=== PATIENT | male | born 1940 | race Caucasian/White ===

== ENCOUNTER 2018-02-23 13:34 | Emergency (ER) | payer MEDICARE ==
[2016-08-03 10:13] VITALS: BMI 19.3
[~2018-02-23 13:34] MED LIST: BAYER CHEWABLE81 MG PO; BETAPACE 80 MG80 MG PO; BROVANA15 MCG/2 M INH; COLACE100 MG PO; ELIQUIS2.5 MG PO; HYDROCODONE-APA1 TAB PO; IPRAT-ALBUT 0.5-3 ML UPD; LEVOFLOXAC250 MG/50 IV; NICODERM C1 PATCH .3 TRANSDERM; NORCO 10/325 TA1 TA1 PO; XANAX0.25 MG PO; XANAX0.5 MG PO; ZOFRAN4 MG PO; ZOSYN 3.3753.375 G1 IV
[2018-02-23 15:28] LABS: BASOPHILS 0.4 % (0-2); EOSINOPHILS 2.4 % (0-7); HEMATOCRIT 43.6 % (42.0-54.0); HEMOGLOBIN 14.5 g/dL (13.5-17.5); IMMATURE GRANULOCYTES 0.4 % (0-5); LYMPHOCYTES 21.5 % (15-50); MCH 30.7 pg (26.0-34.0); MCHC 33.3 g/dL (31.0-37.0); MCV 92.4 fL (80.0-100.0); MEAN PLATELET VOLUME 10.3 fL (7.4-10.4); MONOCYTES 6.7 % (2-11); NEUTROPHILS 68.6 % (40-80); RBC 4.72 10x6/uL (4.20-6.10); RDW 13.8 % (11.5-14.5)
[2018-02-23 15:31] LABS: PLATELET COUNT 179 10x3/uL (130-400)
[2018-02-23 15:43] LABS: ALBUMIN 3.5 g/dL (3.4-5.0); ALKALINE PHOSPHATASE 60 U/L (46-116); ALT (SGPT) 13 U/L (10-68); BILIRUBIN - TOTAL 0.23 mg/dL (0.2-1.3); CALC OSMOLALITY 280 mosm/kg (275-300); CALCIUM 9.3 mg/dL (8.5-10.1); CARBON DIOXIDE 33.3 mmol/L (21.0-32.0); CHLORIDE - SERUM 101 mmol/L (98-107); CREATININE - SERUM 0.7 mg/dL (0.6-1.3); GLUCOSE 78 mg/dL (74-106); POTASSIUM - SERUM 4.2 mmol/L (3.5-5.1); PROTEIN - SERUM 7.3 g/dL (6.4-8.2); SODIUM 142 mmol/L (136-145); UREA NITROGEN 10 mg/dL (7-18); eGFR NON AFRICAN AMERICAN > 90 mL/min (90-120)
[2018-02-23 16:12] LABS: APPEARANCE CLEAR (CLEAR); BILIRUBIN NEGATIVE (NEGATIVE); COLOR YELLOW (YELLOW); GLUCOSE NEGATIVE (NEGATIVE); KETONE NEGATIVE (NEGATIVE); NITRITE NEGATIVE (NEGATIVE); PROTEIN NEGATIVE (NEGATIVE); SPECIFIC GRAVITY 1.015 (1.005-1.020); UROBILINOGEN NORMAL (NORMAL)
[2018-02-23 16:15] LABS: BACTERIA FEW /hpf (NONE SEEN); EPITHELIAL CELLS 0-5 /hpf (0-5); WHITE CELLS - URINE 0-5 /hpf (0-5)
== END 2018-02-23 18:18 | disposition home or self-care (01) ==
LOC: D.ER 13:34
PROVIDERS: Physician Assistant
DX: R05 Cough (principal); R53.83 Other fatigue

== ENCOUNTER 2018-07-08 15:15 | Inpatient (IN) | payer MEDICARE ==
[~2018-07-08] VITALS: Ht 175.3 cm; Wt 59.8 kg
[2018-07-08 15:00] VITALS: BP 135/75
[2018-07-08 15:41] LABS: BASOPHILS 0.3 % (0-2); EOSINOPHILS 2.7 % (0-7); HEMATOCRIT 44.7 % (42.0-54.0); HEMOGLOBIN 15.2 g/dL (13.5-17.5); IMMATURE GRANULOCYTES 0.2 % (0-5); LYMPHOCYTES 16.3 % (15-50); MCH 31.3 pg (26.0-34.0); MCV 92.2 fL (80.0-100.0); MEAN PLATELET VOLUME 10.5 fL (7.4-10.4); MONOCYTES 5.6 % (2-11); NEUTROPHILS 74.9 % (40-80); PLATELET COUNT 164 10x3/uL (130-400); RBC 4.85 10x6/uL (4.20-6.10); RDW 13.8 % (11.5-14.5)
[2018-07-08 15:54] LABS: ALBUMIN 3.8 g/dL (3.4-5.0); ALKALINE PHOSPHATASE 65 U/L (46-116); ALT (SGPT) 16 U/L (10-68); BILIRUBIN - TOTAL 0.34 mg/dL (0.2-1.3); CALC OSMOLALITY 275 mosm/kg (275-300); CALCIUM 9.3 mg/dL (8.5-10.1); CARBON DIOXIDE 31.6 mmol/L (21.0-32.0); CHLORIDE - SERUM 101 mmol/L (98-107); CREATININE - SERUM 0.7 mg/dL (0.6-1.3); GLUCOSE 97 mg/dL (74-106); POTASSIUM - SERUM 3.9 mmol/L (3.5-5.1); PROTEIN - SERUM 7.8 g/dL (6.4-8.2); SODIUM 137 mmol/L (136-145); UREA NITROGEN 18 mg/dL (7-18); eGFR NON AFRICAN AMERICAN > 90 mL/min (90-120)
[2018-07-08 17:00] VITALS: BP 120/61
[2018-07-08 17:15] VITALS: BP 129/62
[2018-07-08 17:30] VITALS: BP 128/68
[2018-07-08 18:02] VITALS: BP 130/61
[2018-07-08] MEDS ORDERED: VENTOLIN HFA18 GM INH (18:42)
[2018-07-09 04:20] VITALS: BP 130/61; BMI 22.2
[2018-07-09 05:16] VITALS: BP 108/60
[2018-07-09 08:23] VITALS: BP 136/68
[2018-07-09 11:43] VITALS: BP 115/62
[2018-07-09 15:21] VITALS: BP 128/67
[2018-07-09 20:00] VITALS: BP 122/67
[2018-07-10 00:56] VITALS: BP 127/68
[2018-07-10 04:00] VITALS: BP 115/65
[2018-07-10 04:59] LABS: APPEARANCE CLEAR (CLEAR); BILIRUBIN NEGATIVE (NEGATIVE); COLOR YELLOW (YELLOW); GLUCOSE 50 mg/dL (NEGATIVE); KETONE NEGATIVE (NEGATIVE); NITRITE NEGATIVE (NEGATIVE); PROTEIN NEGATIVE (NEGATIVE); SPECIFIC GRAVITY 1.015 (1.005-1.020); UROBILINOGEN NORMAL (NORMAL)
[2018-07-10 08:32] VITALS: BP 125/63
[2018-07-10 10:55] VITALS: BP 108/72
[2018-07-10 12:24] VITALS: Ht 175.3 cm; Wt 59.8 kg
[2018-07-10 13:04] LABS: BASOPHILS 0 % (0-2); EOSINOPHILS 0.1 % (0-7); HEMATOCRIT 46.2 % (42.0-54.0); HEMOGLOBIN 15.7 g/dL (13.5-17.5); IMMATURE GRANULOCYTES 0.2 % (0-5); LYMPHOCYTES 5.1 % (15-50); MCH 31.2 pg (26.0-34.0); MCV 91.8 fL (80.0-100.0); MEAN PLATELET VOLUME 11.5 fL (7.4-10.4); MONOCYTES 3.1 % (2-11); NEUTROPHILS 91.5 % (40-80); RBC 5.03 10x6/uL (4.20-6.10)
[2018-07-10 13:07] LABS: PLATELET COUNT 222 10x3/uL (130-400); WBC 14.2 10x3/uL (4.8-10.8)
[2018-07-10 13:42] LABS: ALBUMIN 3.7 g/dL (3.4-5.0); ALKALINE PHOSPHATASE 74 U/L (46-116); ALT (SGPT) 13 U/L (10-68); BILIRUBIN - TOTAL 0.34 mg/dL (0.2-1.3); CALCIUM 9.2 mg/dL (8.5-10.1); CARBON DIOXIDE 28.9 mmol/L (21.0-32.0); CHLORIDE - SERUM 102 mmol/L (98-107); CREATININE - SERUM 0.8 mg/dL (0.6-1.3); POTASSIUM - SERUM 3.6 mmol/L (3.5-5.1); PROTEIN - SERUM 7.4 g/dL (6.4-8.2); SODIUM 141 mmol/L (136-145); eGFR NON AFRICAN AMERICAN > 90 mL/min (90-120)
[2018-07-10 13:43] LABS: CALC OSMOLALITY 289 mosm/kg (275-300); GLUCOSE 169 mg/dL (74-106); UREA NITROGEN 26 mg/dL (7-18)
[2018-07-10 15:20] VITALS: BP 114/60
[2018-07-10 22:06] VITALS: BP 106/62
[2018-07-11 00:47] VITALS: BP 138/66
[2018-07-11 05:23] VITALS: BP 113/63
[2018-07-11 06:07] LABS: BASOPHILS 0 % (0-2); EOSINOPHILS 0 % (0-7); HEMATOCRIT 42.3 % (42.0-54.0); IMMATURE GRANULOCYTES 0.4 % (0-5); LYMPHOCYTES 5.9 % (15-50); MCH 30.4 pg (26.0-34.0); MCHC 33.1 g/dL (31.0-37.0); MCV 91.8 fL (80.0-100.0); MEAN PLATELET VOLUME 11.8 fL (7.4-10.4); MONOCYTES 3.9 % (2-11); NEUTROPHILS 89.8 % (40-80); PLATELET COUNT 187 10x3/uL (130-400); RBC 4.61 10x6/uL (4.20-6.10); RDW 14.1 % (11.5-14.5); WBC 14.3 10x3/uL (4.8-10.8)
[2018-07-11 06:26] LABS: ALKALINE PHOSPHATASE 63 U/L (46-116); ALT (SGPT) 12 U/L (10-68); BILIRUBIN - TOTAL 0.34 mg/dL (0.2-1.3); CALC OSMOLALITY 285 mosm/kg (275-300); CALCIUM 8.9 mg/dL (8.5-10.1); CARBON DIOXIDE 31.2 mmol/L (21.0-32.0); CHLORIDE - SERUM 104 mmol/L (98-107); CREATININE - SERUM 0.7 mg/dL (0.6-1.3); GLUCOSE 155 mg/dL (74-106); MAGNESIUM - SERUM 2.1 mg/dL (1.8-2.4); POTASSIUM - SERUM 3.3 mmol/L (3.5-5.1); PROTEIN - SERUM 6.5 g/dL (6.4-8.2); SODIUM 140 mmol/L (136-145); UREA NITROGEN 24 mg/dL (7-18); eGFR NON AFRICAN AMERICAN > 90 mL/min (90-120)
[2018-07-11 08:30] VITALS: BP 153/82
[2018-07-11 11:30] VITALS: BP 122/64
[2018-07-11 15:00] VITALS: BP 112/62
[2018-07-11 22:50] VITALS: BP 119/73
[2018-07-12 01:58] VITALS: BP 113/64
[2018-07-12 05:22] LABS: BASOPHILS 0 % (0-2); EOSINOPHILS 0.1 % (0-7); HEMATOCRIT 44.1 % (42.0-54.0); HEMOGLOBIN 14.7 g/dL (13.5-17.5); IMMATURE GRANULOCYTES 0.3 % (0-5); LYMPHOCYTES 10.9 % (15-50); MCH 30.9 pg (26.0-34.0); MCHC 33.3 g/dL (31.0-37.0); MCV 92.8 fL (80.0-100.0); MEAN PLATELET VOLUME 10.8 fL (7.4-10.4); MONOCYTES 6.3 % (2-11); NEUTROPHILS 82.4 % (40-80); PLATELET COUNT 152 10x3/uL (130-400); RBC 4.75 10x6/uL (4.20-6.10); RDW 14.1 % (11.5-14.5); WBC 14.5 10x3/uL (4.8-10.8)
[2018-07-12 05:45] LABS: ALBUMIN 2.9 g/dL (3.4-5.0); ALKALINE PHOSPHATASE 56 U/L (46-116); ALT (SGPT) 13 U/L (10-68); BILIRUBIN - TOTAL 0.55 mg/dL (0.2-1.3); CALC OSMOLALITY 279 mosm/kg (275-300); CALCIUM 8.6 mg/dL (8.5-10.1); CARBON DIOXIDE 34.1 mmol/L (21.0-32.0); CHLORIDE - SERUM 102 mmol/L (98-107); CREATININE - SERUM 0.8 mg/dL (0.6-1.3); GLUCOSE 108 mg/dL (74-106); MAGNESIUM - SERUM 1.9 mg/dL (1.8-2.4); POTASSIUM - SERUM 3.4 mmol/L (3.5-5.1); PROTEIN - SERUM 6.4 g/dL (6.4-8.2); SODIUM 138 mmol/L (136-145); UREA NITROGEN 20 mg/dL (7-18); eGFR NON AFRICAN AMERICAN > 90 mL/min (90-120)
[2018-07-12 06:15] VITALS: BP 123/73
[2018-07-12 07:56] VITALS: BP 111/60
[2018-07-12] MEDS ORDERED: PREDNISONE10 MG PO (10:14)
[2018-07-12] MEDS ORDERED: MUCINEX600 MG PO (10:14)
[2018-07-12 10:44] VITALS: BP 108/57
[2018-07-12 14:17] VITALS: BP 110/63
== END 2018-07-12 17:13 | disposition home or self-care (01) | DRG 190 ==
LOC: D.ER 15:15 → D.EDHOLD 19:05 → D.M2 19:05
PROVIDERS: Emergency Medicine; Family Medicine; Internal Medicine Nephrology
DX: J44.1 Chronic obstructive pulmonary disease with (acute) exacerbation (principal); E43 Unspecified severe protein-calorie malnutrition; F17.213 Nicotine dependence, cigarettes, with withdrawal; J96.11 Chronic respiratory failure with hypoxia; Z68.22 Body mass index [BMI] 22.0-22.9, adult; I48.91 Unspecified atrial fibrillation; F41.9 Anxiety disorder, unspecified; F32.9 Major depressive disorder, single episode, unspecified; Z86.73 Personal history of transient ischemic attack (TIA), and cerebral infarction without residual deficits; Z79.01 Long term (current) use of anticoagulants

== ENCOUNTER 2018-08-18 16:59 | Inpatient (IN) | payer MEDICARE ==
[~2018-08-18] VITALS: Ht 170.2 cm; Wt 54.4 kg
--- NOTE | ~2018-08-18 | MORECARE ---
CASE MANAGEMENT DISCHARGE SUMMARY PATIENT: ZIA REDDY UNIT: [id number] ADM DATE: 08/18/18 AGE: 77 : 39 SEX: M ROOM/BED: D.2202 AUTHOR: DEMARDOC PHYSICIAN: REFERRING PHYSICIAN: ACE RENTERIA MD DATE OF SERVICE: 08/23/18 Discharge Plan Patient Name: ZIA REDDY Facility: [facility]:[place] : 1940 Planned Disposition: Home Anticipated Discharge Date: Discharge Date: Expected LOS: Initial Reviewer: [email or web address] Initial Review Date: 08/18/2018 Generated: 08/23/18 3:16 pm Comments DCP- Discharge Planning Updated by [email or web address]: Carolina Becerra on 08/23/18 1:[address] Patient will be discharging to inpatient rehab department today. IMM served and explained. I called and spoke with patient's son, Jeremie DCP- Discharge Planning Updated by [email or web address]: Carolina Becerra on 08/23/18 12:[address] spoke with patient's today and updated on plan of care. told him that we were going to try to get him to inpatient rehab. she did state that he had home o2 and a walker and he was independent for his age. cm will continue to follow and assist with dc planning DCP- Discharge Planning Updated by [id number]: Carolina Becerra on 08/21/18 1:[address] Patient Name: ZIA REDDY Admission Status: ER Accout number: [id number] Admission Date: 08-18-2018 : 1940 Admission Diagnosis: Attending: ACE RENTERIA Current LOS: 3 Anticipated DC Date: Planned Disposition: Home Primary Insurance: MEDICARE A & B Discharge Planning Comments: CM met with patient and attempted to speak with him about discharge planning. It is very hard to communicate with him. He stated that he lives with his and son, but does not like the way that they live. He mentioned his daughter Alpa Reddy (who lives with [place]) mentioned that he could come live with her, but he is unable to find her number for me to call her. I am unsure if his home is safe. He stated that he take his walker into the shower and falls everytime he showers. He has home O2 (I think) walker and cane. CM will continue to follow and assist with DC planning. I may recommend Inpatient rehab vs Skilled to build up strength . Will continue to follow Document Control Assistant: Carolina Becerra DCPIA - Discharge Planning Initial Assessment Updated by [email or web address]: Carolina Becerra on 08/21/18 2:33 pm * Is the patient Alert and Oriented? Yes * How many steps to enter\exit or inside your home? * PCP * [facility] * Preadmission Environment Home with Family * ADLs Partial Dependent * Partial ADLs (Assistance needed) Bathing * Equipment Cane Oxygen Rolling Walker * List name and contact numbers for known caregivers / representatives who currently or will assist patient after discharge: and son jeremie reddy (son ) [phone] * Verbal permission to speak to the caregivers and representatives has been obtained from the patient. Yes * Additional services required to return to the preadmission environment? Yes * Has this patient been hospitalized within the prior 30 days at any hospital? No Coverage Notice Reviewer: [id number] - Carolina Becerra Notice Issued Date-Time: 08/23/2018 14:00 Notice Type: IM Discharge Notice Notice Delivered To: Patient Relationship to Patient: White Sourer Name: Delivery Method: HAND - Hand Delivered Hortensia Days: Prior Verbal Notification: Recipient Understood Notice: Yes Recipient Signature: Yes Med Rec Note Co-signed by Attending: Coverage Notice Comment: Last DP export: 08/23/18 12:51 Patient Name: ZIA REDDY Page 52625 at 1416 All edits/amendments must be made on the electronic document DICTATION DATE: 08/23/181414 CRANE MAN: MAHI 08/23/181414 RPT#: [id number] DC DATE: STATUS: ADM IN [facility] [address] [place] [address] END OF REPORT
--- NOTE | ~2018-08-18 | MORECARE ---
CASE MANAGEMENT DISCHARGE SUMMARY PATIENT: ZIA REDDY UNIT: [id number] ADM DATE: 08/18/18 AGE: 77 : 39 SEX: M ROOM/BED: D.2202 AUTHOR: QAMAR BENZ PHYSICIAN: REFERRING PHYSICIAN: ACE RENTERIA MD DATE OF SERVICE: 08/23/18 Discharge Plan Patient Name: ZIA REDDY Facility: [facility]:[place] : 1940 Planned Disposition: Home Anticipated Discharge Date: Discharge Date: Expected LOS: Initial Reviewer: [email or web address] Initial Review Date: 08/18/2018 Generated: 08/23/18 2:51 pm Comments DCP- Discharge Planning Updated by [id number]: Carolina Becerra on 08/23/18 12:[address] spoke with patient's today and updated on plan of care. told him that we were going to try to get him to inpatient rehab. she did state that he had home o2 and a walker and he was independent for his age. cm will continue to follow and assist with dc planning DCP- Discharge Planning Updated by [email or web address]: Carolina Becerra on 08/21/18 1:[address] Patient Name: ZIA REDDY Admission Status: ER Accout number: [id number] Admission Date: 08-18-2018 : 1940 Admission Diagnosis: Attending: ACE RENTERIA Current LOS: 3 Anticipated DC Date: Planned Disposition: Home Primary Insurance: MEDICARE A & B Discharge Planning Comments: CM met with patient and attempted to speak with him about discharge planning. It is very hard to communicate with him. He stated that he lives with his and son, but does not like the way that they live. He mentioned his daughter Alpa Reddy (who lives with [place]) mentioned that he could come live with her, but he is unable to find her number for me to call her. I am unsure if his home is safe. He stated that he take his walker into the shower and falls everytime he showers. He has home O2 (I think) walker and cane. CM will continue to follow and assist with DC planning. I may recommend Inpatient rehab vs Skilled to build up strength . Will continue to follow Purchasing Agent: Carolina Becerra DCPIA - Discharge Planning Initial Assessment Updated by [email or web address]: Carolina Becerra on 08/21/18 2:33 pm * Is the patient Alert and Oriented? Yes * How many steps to enter\exit or inside your home? * PCP * [facility] * Preadmission Environment Home with Family * ADLs Partial Dependent * Partial ADLs (Assistance needed) Bathing * Equipment Cane Oxygen Rolling Walker * List name and contact numbers for known caregivers / representatives who currently or will assist patient after discharge: and son ny reddy (son ) [phone] * Verbal permission to speak to the caregivers and representatives has been obtained from the patient. Yes * Additional services required to return to the preadmission environment? Yes * Has this patient been hospitalized within the prior 30 days at any hospital? No Last DP export: 08/21/18 1:38 Patient Name: ZIA REDDY Page 18724 at 1351 All edits/amendments must be made on the electronic document DICTATION DATE: 08/23/18 1350 CV RN: MAHI 08/23/18 1350 RPT#: [id number] PR DATE: STATUS: ADM IN [facility] [address] [place] [address] END OF REPORT
--- NOTE | ~2018-08-18 | MORECARE ---
CASE MANAGEMENT DISCHARGE SUMMARY PATIENT: ZIA REDDY UNIT: [id number] ADM DATE: 08/18/18 AGE: 77 : 39 SEX: M ROOM/BED: D.2202 AUTHOR: DEMARDOC PHYSICIAN: REFERRING PHYSICIAN: ACE RENTERIA MD DATE OF SERVICE: 08/24/18 Discharge Plan Patient Name: ZIA REDDY Facility: [facility]:[place] : 1940 Planned Disposition: Home Anticipated Discharge Date: Discharge Date: 08/23/2018 Expected LOS: 0 Initial Reviewer: [email or web address] Initial Review Date: 08/18/2018 Generated: 08/24/18 10:16 am Comments DCP- Discharge Planning Updated by [id number]: Carolina Becerra on 08/23/18 1:[address] Patient will be discharging to inpatient rehab department today. IMM served and explained. I called and spoke with patient's sonJeremie DCP- Discharge Planning Updated by [id number]: Carolina Becerra on 08/23/18 12:[address] spoke with patient's today and updated on plan of care. told him that we were going to try to get him to inpatient rehab. she did state that he had home o2 and a walker and he was independent for his age. cm will continue to follow and assist with dc planning DCP- Discharge Planning Updated by [email or web address]: Carolina Becerra on 08/21/18 1:[address] Patient Name: ZIA REDDY Admission Status: ER Accout number: [id number] Admission Date: 08-18-2018 : 1940 Admission Diagnosis: Attending: ACE RENTERIA Current LOS: 3 Anticipated DC Date: Planned Disposition: Home Primary Insurance: MEDICARE A & B Discharge Planning Comments: CM met with patient and attempted to speak with him about discharge planning. It is very hard to communicate with him. He stated that he lives with his and son, but does not like the way that they live. He mentioned his daughter Alpa Reddy (who lives with [place]) mentioned that he could come live with her, but he is unable to find her number for me to call her. I am unsure if his home is safe. He stated that he take his walker into the shower and falls everytime he showers. He has home O2 (I think) walker and cane. CM will continue to follow and assist with DC planning. I may recommend Inpatient rehab vs Skilled to build up strength . Will continue to follow [employer]: Carolina Becerra DCPIA - Discharge Planning Initial Assessment Updated by [email or web address]: Carolina Becerra on 08/21/18 2:33 pm * Is the patient Alert and Oriented? Yes * How many steps to enter\exit or inside your home? * PCP * [facility] * Preadmission Environment Home with Family * ADLs Partial Dependent * Partial ADLs (Assistance needed) Bathing * Equipment Cane Oxygen Rolling Walker * List name and contact numbers for known caregivers / representatives who currently or will assist patient after discharge: and son jereime reddy (son ) [phone] * Verbal permission to speak to the caregivers and representatives has been obtained from the patient. Yes * Additional services required to return to the preadmission environment? Yes * Has this patient been hospitalized within the prior 30 days at any hospital? No Coverage Notice Reviewer: [id number] - Carolina Becerra Notice Issued Date-Time: 08/23/2018 14:00 Notice Type: IM Discharge Notice Notice Delivered To: Patient Relationship to Patient: Mitten Stitcher Name: Delivery Method: HAND - Hand Delivered Hortensia Days: Prior Verbal Notification: Recipient Understood Notice: Yes Recipient Signature: Yes Med Rec Note Co-signed by Attending: Coverage Notice Comment: Last DP export: 08/23/18 1:16 Patient Name: ZIA REDDY Page 37195 at 0916 All edits/amendments must be made on the electronic document DICTATION DATE: 08/24/18915 FURNACE PUNCHER: MAHI 08/24/18915 RPT#: [id number] DC DATE:08/23/18 STATUS: DIS IN [facility] [address] [place] [address] END OF REPORT
--- NOTE | ~2018-08-18 | MORECARE ---
CASE MANAGEMENT DISCHARGE SUMMARY PATIENT: ZIA REDDY UNIT: [id number] ADM DATE: 08/18/18 AGE: 77 : 39 SEX: M ROOM/BED: D.2202 AUTHOR: DEMARDOC PHYSICIAN: REFERRING PHYSICIAN: ACE RENTERIA MD DATE OF SERVICE: 08/21/18 Discharge Plan Patient Name: ZIA REDDY Facility: [facility]:[place] : 1940 Planned Disposition: Home Anticipated Discharge Date: Discharge Date: Expected LOS: Initial Reviewer: [email or web address] Initial Review Date: 08/18/2018 Generated: 08/21/18 3:38 pm Comments DCP- Discharge Planning Updated by [email or web address]: Carolina Becerra on 08/21/18 1:[address] Patient Name: ZIA REDDY Admission Status: ER Accout number: [id number] Admission Date: 08-18-2018 : 1940 Admission Diagnosis: Attending: ACE RENTERIA Current LOS: 3 Anticipated DC Date: Planned Disposition: Home Primary Insurance: MEDICARE A & B Discharge Planning Comments: CM met with patient and attempted to speak with him about discharge planning. It is very hard to communicate with him. He stated that he lives with his and son, but does not like the way that they live. He mentioned his daughter Alpa Reddy (who lives with [place]) mentioned that he could come live with her, but he is unable to find her number for me to call her. I am unsure if his home is safe. He stated that he take his walker into the shower and falls everytime he showers. He has home O2 (I think) walker and cane. CM will continue to follow and assist with DC planning. I may recommend Inpatient rehab vs Skilled to build up strength . Will continue to follow Engraver Machine: Carolina Becerra DCPIA - Discharge Planning Initial Assessment Updated by [email or web address]: Carolina Becerra on 08/21/18 2:33 pm * Is the patient Alert and Oriented? Yes * How many steps to enter\exit or inside your home? * PCP * [facility] * Preadmission Environment Home with Family * ADLs Partial Dependent * Partial ADLs (Assistance needed) Bathing * Equipment Cane Oxygen Rolling Walker * List name and contact numbers for known caregivers / representatives who currently or will assist patient after discharge: and son ny reddy (son ) [phone] * Verbal permission to speak to the caregivers and representatives has been obtained from the patient. Yes * Additional services required to return to the preadmission environment? Yes * Has this patient been hospitalized within the prior 30 days at any hospital? No Patient Name: ZIA REDDY Page 11757 at 1438 All edits/amendments must be made on the electronic document DICTATION DATE: 08/21/181437 SALES ENGINEER: MAHI 08/21/181437 RPT#: [id number] DC DATE: STATUS: ADM IN [facility] [address] [place] [address] END OF REPORT
[~2018-08-18 16:59] MED LIST changes: +MUCINEX600 MG PO; +PREDNISONE10 MG PO; +VENTOLIN HFA18 GM INH
[2018-08-18 17:24] LABS: BASOPHILS 0.2 % (0-2); EOSINOPHILS 0.1 % (0-7); HEMATOCRIT 39.1 % (42.0-54.0); HEMOGLOBIN 13.2 g/dL (13.5-17.5); IMMATURE GRANULOCYTES 0.7 % (0-5); LYMPHOCYTES 9.4 % (15-50); MCH 31.4 pg (26.0-34.0); MCHC 33.8 g/dL (31.0-37.0); MCV 92.9 fL (80.0-100.0); MEAN PLATELET VOLUME 10.2 fL (7.4-10.4); MONOCYTES 9.9 % (2-11); NEUTROPHILS 79.7 % (40-80); RBC 4.21 10x6/uL (4.20-6.10); RDW 13.8 % (11.5-14.5); WBC 13.8 10x3/uL (4.8-10.8)
[2018-08-18 17:26] LABS: PLATELET COUNT 208 10x3/uL (130-400)
[2018-08-18 17:34] LABS: APTT 28.8 SECONDS (22.8-39.4); INR 1.16 (0.85-1.17); PROTIME 14.4 SECONDS (11.6-15.0)
[2018-08-18 17:35] LABS: D-DIMER-QUANTITATIVE 2.57 ug/mLFEU (0.20-0.54)
[2018-08-18 17:38] LABS: ALBUMIN 2.8 g/dL (3.4-5.0); ALKALINE PHOSPHATASE 97 U/L (46-116); ALT (SGPT) 11 U/L (10-68); BILIRUBIN - TOTAL 0.72 mg/dL (0.2-1.3); CALC OSMOLALITY 273 mosm/kg (275-300); CALCIUM 9.4 mg/dL (8.5-10.1); CARBON DIOXIDE 33.6 mmol/L (21.0-32.0); CHLORIDE - SERUM 95 mmol/L (98-107); CREATININE - SERUM 0.8 mg/dL (0.6-1.3); GLUCOSE 136 mg/dL (74-106); POTASSIUM - SERUM 3.5 mmol/L (3.5-5.1); PROTEIN - SERUM 7.5 g/dL (6.4-8.2); SODIUM 135 mmol/L (136-145); UREA NITROGEN 18 mg/dL (7-18); eGFR NON AFRICAN AMERICAN > 90 mL/min (90-120)
[2018-08-18 17:50] LABS: CKMB 0.4 U/L (0.0-3.6); CREATINE KINASE 22 UL (21-232); PRO BNP 1070 pg/mL (0-450)
[2018-08-18 17:56] LABS: TROPONIN-I < 0.017 ng/mL (0.000-0.060)
[2018-08-18 18:39] VITALS: BP 109/61
[2018-08-18 20:18] VITALS: BP 107/59
[2018-08-19] VITALS (7 sets, daily range): BP systolic 89–107; BP diastolic 48–59; Ht 170.2 cm; Wt 54.4 kg
[2018-08-19 06:15] LABS: BASOPHILS 0.2 % (0-2); EOSINOPHILS 0 % (0-7); HEMATOCRIT 35.2 % (42.0-54.0); HEMOGLOBIN 11.6 g/dL (13.5-17.5); IMMATURE GRANULOCYTES 0.5 % (0-5); LYMPHOCYTES 5.3 % (15-50); MCH 30.7 pg (26.0-34.0); MCV 93.1 fL (80.0-100.0); MONOCYTES 3.1 % (2-11); NEUTROPHILS 90.9 % (40-80); PLATELET COUNT 210 10x3/uL (130-400); RBC 3.78 10x6/uL (4.20-6.10); WBC 10.9 10x3/uL (4.8-10.8)
[2018-08-19 06:27] LABS: CALC OSMOLALITY 279 mosm/kg (275-300); CALCIUM 8.8 mg/dL (8.5-10.1); CARBON DIOXIDE 32.5 mmol/L (21.0-32.0); CHLORIDE - SERUM 99 mmol/L (98-107); CREATININE - SERUM 0.6 mg/dL (0.6-1.3); GLUCOSE 172 mg/dL (74-106); POTASSIUM - SERUM 3.6 mmol/L (3.5-5.1); SODIUM 137 mmol/L (136-145); UREA NITROGEN 18 mg/dL (7-18); eGFR NON AFRICAN AMERICAN > 90 mL/min (90-120)
[2018-08-20 04:26] VITALS: BP 100/60
[2018-08-20 05:05] LABS: BASOPHILS 0.2 % (0-2); EOSINOPHILS 0 % (0-7); HEMATOCRIT 35.3 % (42.0-54.0); HEMOGLOBIN 11.8 g/dL (13.5-17.5); IMMATURE GRANULOCYTES 0.7 % (0-5); LYMPHOCYTES 3.8 % (15-50); MCH 31.2 pg (26.0-34.0); MCHC 33.4 g/dL (31.0-37.0); MCV 93.4 fL (80.0-100.0); MEAN PLATELET VOLUME 10.5 fL (7.4-10.4); MONOCYTES 3.9 % (2-11); NEUTROPHILS 91.4 % (40-80); PLATELET COUNT 220 10x3/uL (130-400); RBC 3.78 10x6/uL (4.20-6.10); RDW 14.1 % (11.5-14.5)
[2018-08-20 05:07] LABS: WBC 17.6 10x3/uL (4.8-10.8)
[2018-08-20 05:26] LABS: CALCIUM 8.9 mg/dL (8.5-10.1); CARBON DIOXIDE 32.3 mmol/L (21.0-32.0); CHLORIDE - SERUM 100 mmol/L (98-107); POTASSIUM - SERUM 3.6 mmol/L (3.5-5.1); SODIUM 137 mmol/L (136-145); THYROID STIMULATING HORMONE 0.04 uIU/mL (0.36-3.74); UREA NITROGEN 20 mg/dL (7-18)
[2018-08-20 05:43] LABS: CALC OSMOLALITY 284 mosm/kg (275-300); CREATININE - SERUM 0.8 mg/dL (0.6-1.3); GLUCOSE 245 mg/dL (74-106); eGFR NON AFRICAN AMERICAN > 90 mL/min (90-120)
[2018-08-20 09:47] VITALS: BP 99/59
[2018-08-20 13:46] VITALS: BP 99/60
[2018-08-20 14:33] LABS: T4 THYROXIN - FREE 1.44 ng/dL (0.76-1.46); THYROID STIMULATING HORMONE 0.06 uIU/mL (0.36-3.74)
[2018-08-20 16:47] VITALS: BP 96/60
[2018-08-20 21:29] VITALS: BP 90/57
[2018-08-21 04:24] LABS: BASOPHILS 0.1 % (0-2); EOSINOPHILS 0 % (0-7); HEMOGLOBIN 12.9 g/dL (13.5-17.5); IMMATURE GRANULOCYTES 1.6 % (0-5); LYMPHOCYTES 3.3 % (15-50); MCH 31.4 pg (26.0-34.0); MCHC 33.1 g/dL (31.0-37.0); MCV 94.9 fL (80.0-100.0); MEAN PLATELET VOLUME 10.6 fL (7.4-10.4); MONOCYTES 3.8 % (2-11); NEUTROPHILS 91.2 % (40-80); PLATELET COUNT 248 10x3/uL (130-400); RBC 4.11 10x6/uL (4.20-6.10); RDW 14.3 % (11.5-14.5); WBC 19.8 10x3/uL (4.8-10.8)
[2018-08-21 04:26] LABS: CALC OSMOLALITY 285 mosm/kg (275-300); CALCIUM 8.9 mg/dL (8.5-10.1); CARBON DIOXIDE 31.6 mmol/L (21.0-32.0); CHLORIDE - SERUM 104 mmol/L (98-107); CREATININE - SERUM 0.7 mg/dL (0.6-1.3); POTASSIUM - SERUM 3.6 mmol/L (3.5-5.1); SODIUM 140 mmol/L (136-145); UREA NITROGEN 22 mg/dL (7-18); eGFR NON AFRICAN AMERICAN > 90 mL/min (90-120)
[2018-08-21 04:31] LABS: GLUCOSE 166 mg/dL (74-106)
[2018-08-21 05:02] VITALS: BP 108/63
[2018-08-21 08:32] VITALS: BP 105/61
[2018-08-21 12:48] VITALS: BP 95/58
[2018-08-21 17:17] VITALS: BP 108/69
[2018-08-21 21:11] VITALS: BP 105/67
[2018-08-22 00:35] VITALS: BP 120/64
[2018-08-22 05:18] VITALS: BP 112/59
[2018-08-22 06:15] LABS: T3 - FREE 1.4 pg/mL (2.0-4.4)
[2018-08-22 07:16] LABS: BASOPHILS 0.1 % (0-2); EOSINOPHILS 0 % (0-7); HEMATOCRIT 41.2 % (42.0-54.0); HEMOGLOBIN 13.1 g/dL (13.5-17.5); IMMATURE GRANULOCYTES 1.7 % (0-5); LYMPHOCYTES 7.8 % (15-50); MCH 30.8 pg (26.0-34.0); MCHC 31.8 g/dL (31.0-37.0); MCV 96.7 fL (80.0-100.0); MONOCYTES 5.1 % (2-11); NEUTROPHILS 85.3 % (40-80); PLATELET COUNT 265 10x3/uL (130-400); RBC 4.26 10x6/uL (4.20-6.10); RDW 14.7 % (11.5-14.5); WBC 15.6 10x3/uL (4.8-10.8)
[2018-08-22 07:18] LABS: CALC OSMOLALITY 287 mosm/kg (275-300); CALCIUM 9.1 mg/dL (8.5-10.1); CARBON DIOXIDE 33.7 mmol/L (21.0-32.0); CHLORIDE - SERUM 103 mmol/L (98-107); CREATININE - SERUM 0.7 mg/dL (0.6-1.3); GLUCOSE 156 mg/dL (74-106); POTASSIUM - SERUM 3.6 mmol/L (3.5-5.1); SODIUM 141 mmol/L (136-145); UREA NITROGEN 24 mg/dL (7-18); eGFR NON AFRICAN AMERICAN > 90 mL/min (90-120)
[2018-08-22 08:35] VITALS: BP 121/65
[2018-08-22 11:44] VITALS: BP 120/60
[2018-08-22 16:39] VITALS: BP 101/59
[2018-08-22 21:11] VITALS: BP 124/71
[2018-08-23 03:39] VITALS: BP 121/55
[2018-08-23 08:00] LABS: BASOPHILS 0.1 % (0-2); EOSINOPHILS 0 % (0-7); HEMATOCRIT 38.6 % (42.0-54.0); HEMOGLOBIN 12.5 g/dL (13.5-17.5); IMMATURE GRANULOCYTES 3.2 % (0-5); MCH 30.5 pg (26.0-34.0); MCHC 32.4 g/dL (31.0-37.0); MEAN PLATELET VOLUME 9.9 fL (7.4-10.4); MONOCYTES 1.9 % (2-11); NEUTROPHILS 89.8 % (40-80); PLATELET COUNT 258 10x3/uL (130-400); RDW 14.5 % (11.5-14.5); WBC 14.5 10x3/uL (4.8-10.8)
[2018-08-23 08:12] LABS: CALC OSMOLALITY 280 mosm/kg (275-300); CALCIUM 8.8 mg/dL (8.5-10.1); CARBON DIOXIDE 32.1 mmol/L (21.0-32.0); CHLORIDE - SERUM 101 mmol/L (98-107); CREATININE - SERUM 0.6 mg/dL (0.6-1.3); GLUCOSE 166 mg/dL (74-106); SODIUM 137 mmol/L (136-145); UREA NITROGEN 22 mg/dL (7-18); eGFR NON AFRICAN AMERICAN > 90 mL/min (90-120)
[2018-08-23 08:13] LABS: POTASSIUM - SERUM 4.5 mmol/L (3.5-5.1)
[2018-08-23 08:14] LABS: MCV 94.1 fL (80.0-100.0)
[2018-08-23 09:03] VITALS: BP 118/67
[2018-08-23 12:36] VITALS: BP 106/56
[2018-08-23] MEDS ORDERED: PULMICORT0.5 MG/21 UPD (13:09)
[2018-08-23] MEDS ORDERED: DALIRESP500 MCG PO (13:09)
[2018-08-23] MEDS ORDERED: MAXIPIME 2 GM/D52 G1 IV (13:09)
[2018-08-23] MEDS ORDERED: SINGULAIR10 MG PO (13:09)
[2018-08-23] MEDS ORDERED: MUCINEX DM ER1 EAC1 PO (13:09)
[2018-08-23] MEDS ORDERED: Levaquin PREMIX IV (13:09)
[2018-08-23] MEDS ORDERED: BENZONATATE200 MG PO (13:10)
[2018-08-23] MEDS ORDERED: MUCOMYST 20% INH (13:10)
[2018-08-23] MEDS ORDERED: FLUTICASONE PRO16 GM NASAL (13:10)
[2018-08-26 03:11] LABS: T3 - REVERSE 64.1 ng/dL (9.2-24.1)
== END 2018-08-23 17:45 | DRG 190 ==
LOC: D.ER 16:59 → D.MS 18:49
PROVIDERS: Emergency Medicine; Family Medicine; Internal Medicine Nephrology
PROC: 0HBRXZZ Excision of Toe Nail, External Approach (ICD-10-PCS; principal; 2018-08-21)
DX: J44.0 Chronic obstructive pulmonary disease with (acute) lower respiratory infection (principal); J18.9 Pneumonia, unspecified organism; J96.11 Chronic respiratory failure with hypoxia; I50.22 Chronic systolic (congestive) heart failure; F17.213 Nicotine dependence, cigarettes, with withdrawal; I48.91 Unspecified atrial fibrillation; L60.2 Onychogryphosis

== ENCOUNTER 2018-08-23 17:31 | Inpatient (IN) | payer MEDICARE ==
[~2018-08-23] VITALS: Ht 170.2 cm; Wt 59.0 kg
--- NOTE | ~2018-08-23 | RHP ---
PATIENT: ZIA FITZGERALD MEDICAL RECORD: [id number] ACCOUNT: [id number] LOCATION:[id number] : [birth year] ADMISSION DATE: 08/23/18 REHABILITATION HISTORY AND PHYSICAL EXAMINATION POST ADMISSION PHYSICIAN EXAMINATION ADMITTING DIAGNOSIS: Acute exacerbation of chronic obstructive pulmonary disease. HISTORY OF PRESENT ILLNESS: The patient is a 77-year-old gentleman who is admitted to inpatient rehab with acute exacerbation of chronic obstructive pulmonary disease, was admitted to the Emergency Room on 08/18/2018. He was complaining of shortness of breath for over a month since his last discharge from the hospital, still continues to smoke cigarettes and he is on oxygen at home. He has had a productive cough, dyspnea on exertion, shortness of breath, malaise, fever, chills, fatigue, weakness and nausea. He was noted to be afebrile with an O2 sat of 87% on 2 liters. Chest x-ray showed COPD, but no obvious infiltrates. His D-dimer was elevated, but a CTA was negative for PE. He was admitted with pulmonary consult, was treated with Maxipime and nebs, DuoNeb, Brovana and budesonide, IV steroids, Daliresp and Singulair. He has been on mucolytics and antitussives. His O2 sat is being greater than 90% on his current treatment. Previously, he was living with his family. He was moderately independent for ADLs and mobility. Did wear O2 as needed. Currently, he is mod-to-max assist for ADLs and mobility. Continues to wear O2 on 3 liters, with a sat of 93%. He is weak and malnourished and fatigues easily. Has obvious dyspnea on exertion. BARRIERS TO DISCHARGE: At this time are adequate calorie and protein intake, increased O2 needs, poor balance, IV antibiotics, IV steroids, updrafts and cardiac monitoring. COMORBIDITIES: In this patient include COPD, leukocytosis, atelectasis, allergic rhinitis, tobacco use, TIA, chest pain, depression, nicotine dependence, pneumonia, chronic anticoagulation, AFib and chronic respiratory failure. PAST MEDICAL HISTORY: Significant for TIA, AFib, arthritis, depression, anxiety, COPD, O2 dependence, pneumonia, degenerative joint disease. PAST SURGICAL HISTORY: Includes colon surgery. ALLERGIES: No known drug allergies. CURRENT MEDICATIONS: Include polyethylene glycol 17 grams in 8 ounces of water daily. He is on Daliresp 500 mcg daily. He is on Flonase nasal spray. He is on Brovana 15 mcg b.i.d. and Nicoderm patch 21 mg. He is on Mucomyst 300 mg every 12 hours. He is on DuoNeb updfts. Prednisone. He is on a tapering dose at this time, Betapace 40 mg b.i.d., Colace 100 mg b.i.d., budesonide 0.5 mg b.i.d., Tessalon Perles 200 mg t.i.d., Eliquis 2.5 mg b.i.d. He is on Xanax 0.5 mg every 8 hours p.r.n., Zofran 4 mg every 4 hours p.r.n. nausea and vomiting, Singulair 10 mg at bedtime. He is on Mucinex D 1 tab b.i.d., and still on Maxipime, he is getting 2 g every 8 hours, he will have a total of 11 doses. HABITS: Does have a history of tobacco use. HISTORY AND PHYSICAL [id number] ZIA FITZGERALD FAMILY HISTORY: Noncontributory. SOCIAL HISTORY: The patient lives with his family and he is hopefully to return back home as prior level of functioning. REVIEW OF SYSTEMS: GENERAL: Does complain of weakness and fatigue. HEENT: Does complain of cold, cough, and congestion. CARDIOVASCULAR: Denies any chest pain. LUNGS: Does complain of shortness of breath especially with activity. PHYSICAL EXAMINATION: VITAL SIGNS: Stable, afebrile. GENERAL: A thin gentleman in no acute distress upon exam. HEENT: Normocephalic and atraumatic. Mucosa moist. NECK: Supple. No lymphadenopathy. LUNGS: Coarse breath sounds bilaterally with decreased breath sounds in the bases. HEART: Irregular rate and rhythm. He is noted to be somewhat bradycardic. ABDOMEN: Benign. EXTREMITIES: No clubbing, cyanosis or edema. NEUROLOGIC: He does have noted proximal muscle weakness. He does seem intact as far as asking questions. LABORATORY DATA: His white count is 14.3, H&H of 13 and 40, and platelet count is 254. His sodium is 139, potassium 3.6, BUN and creatinine of 18 and 0.7 and blood sugar is noted to be 104. 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 The patient has potential to make improvement. We instituted the following multidisciplinary therapies including, but not limited to physical, occupational, respiratory, speech, nutritional services, prosthetics and orthotics. Given his complex medical condition and risk for more complications, rehabilitation services cannot be provided at a low level of care such as a prison facility. PLAN: 1. Admit to [facility] rehab for intensive inpatient therapy to include the following disciplines: A. Physical therapy to improve gait, all transfer skills and bed mobility to a modified independent level. B. Occupational therapy to a modified independent level. C. Case management to assist with discharge planning and placement options. D. Nutrition to assist with nutritional needs. E. Rehabilitation nursing to assist in monitoring the patient's underlying medical conditions and to assist with any type of bowel or bladder management. 2. I am going to get nutrition involved to help with his protein-calorie malnutrition. 3. We will go ahead and reconsult cardiology. He has been bradycardic on his current dose of sotalol. 4. I am going to follow him up with the care team and see him as needed. 5. I will follow up again in the a.m. We will discuss this patient with his family. HISTORY AND PHYSICAL [id number] ZIA FITZGERALD TRANSINT:[id number] Voice Confirmation ID: [id number] DOCUMENT ID: [id number] QI notes whether there has been none or any medical/functional change since admission: - No change since prescreen. QI attests patient continues to be appropriate for IRF: - Continues to be appropriate. YOANDY YOUNG MD at 1854 CC: [id number] DICTATION DATE: 08/24/18 0942 FIRER PORTABLE BOILER: 08/24/[address] [facility] [address] [place] [address]
[~2018-08-23 17:31] MED LIST changes: +BENZONATATE200 MG PO; +DALIRESP500 MCG PO; +FLUTICASONE PRO16 GM NASAL; +Levaquin PREMIX IV; +MAXIPIME 2 GM/D52 G1 IV; +MUCINEX DM ER1 EAC1 PO; +MUCOMYST 20% INH; +PULMICORT0.5 MG/21 UPD; +SINGULAIR10 MG PO
[2018-08-23 19:00] VITALS: BP 137/68
[2018-08-23 22:27] VITALS: BP 137/68; BMI 20.4
[2018-08-24 06:57] LABS: BASOPHILS 0.1 % (0-2); EOSINOPHILS 0.4 % (0-7); HEMATOCRIT 40.4 % (42.0-54.0); HEMOGLOBIN 13.2 g/dL (13.5-17.5); IMMATURE GRANULOCYTES 5.3 % (0-5); LYMPHOCYTES 12.5 % (15-50); MCH 30.6 pg (26.0-34.0); MCHC 32.7 g/dL (31.0-37.0); MCV 93.7 fL (80.0-100.0); MEAN PLATELET VOLUME 10.3 fL (7.4-10.4); MONOCYTES 5.5 % (2-11); NEUTROPHILS 76.2 % (40-80); PLATELET COUNT 254 10x3/uL (130-400); RBC 4.31 10x6/uL (4.20-6.10); RDW 14.5 % (11.5-14.5); WBC 14.3 10x3/uL (4.8-10.8)
[2018-08-24 07:08] LABS: CALCIUM 8.1 mg/dL (8.5-10.1); CARBON DIOXIDE 30.9 mmol/L (21.0-32.0); CHLORIDE - SERUM 104 mmol/L (98-107); CREATININE - SERUM 0.7 mg/dL (0.6-1.3); SODIUM 139 mmol/L (136-145); UREA NITROGEN 18 mg/dL (7-18); eGFR NON AFRICAN AMERICAN > 90 mL/min (90-120)
[2018-08-24 07:09] LABS: CALC OSMOLALITY 279 mosm/kg (275-300); GLUCOSE 104 mg/dL (74-106); POTASSIUM - SERUM 3.6 mmol/L (3.5-5.1)
[2018-08-24 08:06] VITALS: BP 109/53
[2018-08-24 13:16] VITALS: Ht 170.2 cm; Wt 59.0 kg
[2018-08-24 19:09] VITALS: BP 124/47
[2018-08-25 07:28] LABS: BASOPHILS 0.2 % (0-2); EOSINOPHILS 0.5 % (0-7); HEMATOCRIT 40.9 % (42.0-54.0); HEMOGLOBIN 13.3 g/dL (13.5-17.5); IMMATURE GRANULOCYTES 6.1 % (0-5); LYMPHOCYTES 12.8 % (15-50); MCH 30.5 pg (26.0-34.0); MCHC 32.5 g/dL (31.0-37.0); MCV 93.8 fL (80.0-100.0); MONOCYTES 6.2 % (2-11); NEUTROPHILS 74.2 % (40-80); PLATELET COUNT 254 10x3/uL (130-400); RBC 4.36 10x6/uL (4.20-6.10); RDW 14.4 % (11.5-14.5); WBC 13.9 10x3/uL (4.8-10.8)
[2018-08-25 07:38] LABS: CALC OSMOLALITY 277 mosm/kg (275-300); CALCIUM 7.7 mg/dL (8.5-10.1); CARBON DIOXIDE 34.6 mmol/L (21.0-32.0); CHLORIDE - SERUM 102 mmol/L (98-107); CREATININE - SERUM 0.7 mg/dL (0.6-1.3); GLUCOSE 83 mg/dL (74-106); POTASSIUM - SERUM 3.8 mmol/L (3.5-5.1); SODIUM 139 mmol/L (136-145); UREA NITROGEN 15 mg/dL (7-18); eGFR NON AFRICAN AMERICAN > 90 mL/min (90-120)
[2018-08-25 08:19] VITALS: BP 149/59
[2018-08-25 19:00] VITALS: BP 114/63
[2018-08-26 08:22] VITALS: BP 120/62
[2018-08-26 19:45] VITALS: BP 124/68
[2018-08-27 09:59] VITALS: BP 103/52
[2018-08-27 20:07] VITALS: BP 119/68
[2018-08-28 06:22] LABS: BASOPHILS 0.1 % (0-2); EOSINOPHILS 0.4 % (0-7); HEMATOCRIT 38.2 % (42.0-54.0); HEMOGLOBIN 12.2 g/dL (13.5-17.5); IMMATURE GRANULOCYTES 3.3 % (0-5); LYMPHOCYTES 14.8 % (15-50); MCH 30.3 pg (26.0-34.0); MCHC 31.9 g/dL (31.0-37.0); MCV 94.8 fL (80.0-100.0); MEAN PLATELET VOLUME 10.1 fL (7.4-10.4); MONOCYTES 5.6 % (2-11); NEUTROPHILS 75.8 % (40-80); PLATELET COUNT 247 10x3/uL (130-400); RBC 4.03 10x6/uL (4.20-6.10); WBC 15.2 10x3/uL (4.8-10.8)
[2018-08-28 06:38] LABS: CALC OSMOLALITY 277 mosm/kg (275-300); CARBON DIOXIDE 33.9 mmol/L (21.0-32.0); CHLORIDE - SERUM 102 mmol/L (98-107); CREATININE - SERUM 0.5 mg/dL (0.6-1.3); POTASSIUM - SERUM 3.7 mmol/L (3.5-5.1); SODIUM 138 mmol/L (136-145); UREA NITROGEN 12 mg/dL (7-18); eGFR NON AFRICAN AMERICAN > 90 mL/min (90-120)
[2018-08-28 06:41] LABS: GLUCOSE 129 mg/dL (74-106)
[2018-08-28 07:50] VITALS: BP 123/68
[2018-08-29 01:04] VITALS: BP 95/60
[2018-08-29 07:50] VITALS: BP 116/67
[2018-08-29 19:25] VITALS: BP 140/82
[2018-08-30 06:41] LABS: BASOPHILS 0 % (0-2); EOSINOPHILS 0.5 % (0-7); HEMATOCRIT 38.5 % (42.0-54.0); HEMOGLOBIN 12.2 g/dL (13.5-17.5); IMMATURE GRANULOCYTES 2.1 % (0-5); LYMPHOCYTES 17.3 % (15-50); MCH 30.3 pg (26.0-34.0); MCHC 31.7 g/dL (31.0-37.0); MCV 95.5 fL (80.0-100.0); MEAN PLATELET VOLUME 10.2 fL (7.4-10.4); MONOCYTES 5.4 % (2-11); NEUTROPHILS 74.7 % (40-80); PLATELET COUNT 235 10x3/uL (130-400); RBC 4.03 10x6/uL (4.20-6.10)
[2018-08-30 07:00] LABS: CALC OSMOLALITY 276 mosm/kg (275-300); CALCIUM 8.3 mg/dL (8.5-10.1); CARBON DIOXIDE 35.5 mmol/L (21.0-32.0); CHLORIDE - SERUM 103 mmol/L (98-107); CREATININE - SERUM 0.5 mg/dL (0.6-1.3); GLUCOSE 87 mg/dL (74-106); POTASSIUM - SERUM 3.8 mmol/L (3.5-5.1); SODIUM 140 mmol/L (136-145); UREA NITROGEN 10 mg/dL (7-18); eGFR NON AFRICAN AMERICAN > 90 mL/min (90-120)
[2018-08-30 08:38] VITALS: BP 106/62
[2018-08-30 19:00] VITALS: BP 97/59
[2018-08-31 19:46] VITALS: BP 107/56
[2018-09-01 05:57] LABS: BASOPHILS 0.1 % (0-2); EOSINOPHILS 0.4 % (0-7); HEMATOCRIT 37.3 % (42.0-54.0); IMMATURE GRANULOCYTES 1.5 % (0-5); LYMPHOCYTES 8.9 % (15-50); MCH 30.5 pg (26.0-34.0); MCHC 32.2 g/dL (31.0-37.0); MCV 94.7 fL (80.0-100.0); MEAN PLATELET VOLUME 10.4 fL (7.4-10.4); NEUTROPHILS 78.1 % (40-80); PLATELET COUNT 215 10x3/uL (130-400); RBC 3.94 10x6/uL (4.20-6.10); RDW 15.4 % (11.5-14.5); WBC 10.7 10x3/uL (4.8-10.8)
[2018-09-01 06:13] LABS: CALCIUM 8.6 mg/dL (8.5-10.1); CARBON DIOXIDE 32.9 mmol/L (21.0-32.0); CHLORIDE - SERUM 100 mmol/L (98-107); CREATININE - SERUM 0.6 mg/dL (0.6-1.3); GLUCOSE 98 mg/dL (74-106); SODIUM 136 mmol/L (136-145); eGFR NON AFRICAN AMERICAN > 90 mL/min (90-120)
[2018-09-01 06:16] LABS: CALC OSMOLALITY 271 mosm/kg (275-300); POTASSIUM - SERUM 4.4 mmol/L (3.5-5.1); UREA NITROGEN 13 mg/dL (7-18)
[2018-09-01 07:51] VITALS: BP 102/55
[2018-09-01 20:00] VITALS: BP 102/56
[2018-09-02 09:26] VITALS: BP 101/50
[2018-09-02 09:41] VITALS: BP 129/42
[2018-09-02 20:00] VITALS: BP 96/56
[2018-09-03 09:20] VITALS: BP 104/57
[2018-09-03 20:00] VITALS: BP 115/63
[2018-09-04 07:06] LABS: BASOPHILS 0.1 % (0-2); EOSINOPHILS 0.8 % (0-7); HEMATOCRIT 35.3 % (42.0-54.0); HEMOGLOBIN 11.7 g/dL (13.5-17.5); IMMATURE GRANULOCYTES 0.3 % (0-5); MCH 30.8 pg (26.0-34.0); MCHC 33.1 g/dL (31.0-37.0); MCV 92.9 fL (80.0-100.0); MEAN PLATELET VOLUME 9.7 fL (7.4-10.4); MONOCYTES 5.7 % (2-11); NEUTROPHILS 78.1 % (40-80); RDW 15.1 % (11.5-14.5); WBC 9.4 10x3/uL (4.8-10.8)
[2018-09-04 07:08] LABS: PLATELET COUNT 142 10x3/uL (130-400)
[2018-09-04 07:35] LABS: CALC OSMOLALITY 271 mosm/kg (275-300); CALCIUM 8.1 mg/dL (8.5-10.1); CARBON DIOXIDE 32.4 mmol/L (21.0-32.0); CHLORIDE - SERUM 100 mmol/L (98-107); CREATININE - SERUM 0.5 mg/dL (0.6-1.3); GLUCOSE 87 mg/dL (74-106); POTASSIUM - SERUM 3.7 mmol/L (3.5-5.1); SODIUM 136 mmol/L (136-145); UREA NITROGEN 15 mg/dL (7-18); eGFR NON AFRICAN AMERICAN > 90 mL/min (90-120)
[2018-09-04 08:00] VITALS: BP 89/47
[2018-09-04 09:00] VITALS: BP 98/53
== END 2018-09-04 14:17 | disposition home health service (06) | DRG 91 ==
LOC: D.REHAB 17:31
PROVIDERS: Emergency Medicine
DX: G72.89 Other specified myopathies (principal); J18.9 Pneumonia, unspecified organism; J44.1 Chronic obstructive pulmonary disease with (acute) exacerbation; J98.11 Atelectasis; J90 Pleural effusion, not elsewhere classified; F17.203 Nicotine dependence unspecified, with withdrawal; J96.11 Chronic respiratory failure with hypoxia; I48.91 Unspecified atrial fibrillation; D72.829 Elevated white blood cell count, unspecified; J30.9 Allergic rhinitis, unspecified; F32.9 Major depressive disorder, single episode, unspecified; R05 Cough; F41.8 Other specified anxiety disorders; H91.90 Unspecified hearing loss, unspecified ear; L60.2 Onychogryphosis; Z86.73 Personal history of transient ischemic attack (TIA), and cerebral infarction without residual deficits

== ENCOUNTER 2019-09-02 04:59 | Inpatient (IN) | payer MEDICARE ==
[~2019-09-02] VITALS: Ht 170.2 cm; Wt 60.3 kg
[~2019-09-02 04:59] MED LIST changes: +LIPITOR20 MG PO; +MELATONIN5 M3 PO; +NITROQUICK0.4 MG SL; +PEPCID40 MG PO; +PREDNISONE5 MG PO; +VIBRAMYCIN 100100 MG PO
[2019-09-02 06:20] LABS: BASOPHILS 0.4 % (0-2); EOSINOPHILS 3.1 % (0-7); HEMATOCRIT 44.5 % (42.0-54.0); HEMOGLOBIN 14.4 g/dL (13.5-17.5); IMMATURE GRANULOCYTES 0.4 % (0-5); LYMPHOCYTES 21.4 % (15-50); MCH 30.6 pg (26.0-34.0); MCHC 32.4 g/dL (31.0-37.0); MCV 94.5 fL (80.0-100.0); MEAN PLATELET VOLUME 10.6 fL (7.4-10.4); MONOCYTES 7.6 % (2-11); NEUTROPHILS 67.1 % (40-80); PLATELET COUNT 172 10x3/uL (130-400); RBC 4.71 10x6/uL (4.20-6.10); WBC 5.2 10x3/uL (4.8-10.8)
[2019-09-02 06:41] LABS: ALBUMIN 3.5 g/dL (3.4-5.0); ALKALINE PHOSPHATASE 65 U/L (46-116); ALT (SGPT) 14 U/L (10-68); BILIRUBIN - TOTAL 0.54 mg/dL (0.2-1.3); CALC OSMOLALITY 274 mosm/kg (275-300); CALCIUM 9.1 mg/dL (8.5-10.1); CHLORIDE - SERUM 102 mmol/L (98-107); CREATINE KINASE 41 UL (21-232); CREATININE - SERUM 0.8 mg/dL (0.6-1.3); GLUCOSE 102 mg/dL (74-106); LIPASE 81 U/L (73-393); POTASSIUM - SERUM 4.5 mmol/L (3.5-5.1); PRO BNP 204 pg/mL (0-450); PROTEIN - SERUM 7.3 g/dL (6.4-8.2); SODIUM 138 mmol/L (136-145); UREA NITROGEN 10 mg/dL (7-18); eGFR NON AFRICAN AMERICAN > 90 mL/min (90-120)
[2019-09-02 06:46] LABS: TROPONIN-I < 0.017 ng/mL (0.000-0.060)
[2019-09-02 06:47] LABS: APTT 29.9 SECONDS (22.8-39.4); INR 1.04 (0.85-1.17); PROTIME 13.1 SECONDS (11.6-15.0)
--- NOTE | 2019-09-02 07:06 | NUR ---
ROCHESANTIAGO COMPLETE
[2019-09-02 08:16] VITALS: BP 125/68
[2019-09-02 10:47] VITALS: BP 97/55
[2019-09-02 11:09] VITALS: BMI 25.1
--- NOTE | 2019-09-02 14:07 | NUR ---
PT CAME IN VERY DIRTY. LIFE TRAINER CLEANED PT UP. WHEN BATHING PT DRIED, DATED FECES NOTED IN UNDERWEAR, DOWN LEGS, AND ON HANDS AND FEET. THIS REQUIRED EXTENSIVE SCRUBBING TO REMOVE. REPORTED UNSANITARY CONDITION TO CASE MANAGEMENT. I ALSO REPORTED TO CASE MANAGEMENT THAT PT STATED HE STOPPED TAKING HIS MEDS BECAUSE HE COULD NOT AFFORD THEM.
[2019-09-02 15:13] VITALS: BP 119/58
--- NOTE | 2019-09-02 17:07 | MORECARE ---
CASE MANAGEMENT DISCHARGE SUMMARY PATIENT: ZIA FITZGERALD UNIT: [id number] ADM DATE: 09/02/19 AGE: 78 : 39 SEX: M ROOM/BED: D.1211 AUTHOR: QAMAR BENZ PHYSICIAN: REFERRING PHYSICIAN: DALE TONEY MD DATE OF SERVICE: 09/02/19 Discharge Plan Patient Name: ZIA FITZGERALD [facility] [facility] 1940 Planned Disposition: Anticipated Discharge Date: Discharge Date: Expected LOS: Initial Reviewer: [id number] Initial Review Date: 09/02/2019 Generated: 09/02/19 6:07 pm Patient Name: ZIA FITZGERALD Page [id number] at 1707 All edits/amendments must be made on the electronic document DICTATION DATE: 09/02/191706 ATTENDANT SELF SERVICE STORE: MAHI 09/02/191706 RPT#: [id number] DC DATE: STATUS: ADM IN [facility] [address] [place] [address] END OF REPORT
--- NOTE | 2019-09-02 17:15 | MORECARE ---
CASE MANAGEMENT DISCHARGE SUMMARY PATIENT: ZIA FITZGERALD UNIT: [id number] ADM DATE: 09/02/19 AGE: 78 : 39 SEX: M ROOM/BED: D.1211 AUTHOR: QAMAR BENZ PHYSICIAN: REFERRING PHYSICIAN: DALE TONEY MD DATE OF SERVICE: 09/02/19 Discharge Plan Patient Name: ZIA FITZGERALD Facility: [facility]:[place] : 1940 Planned Disposition: Anticipated Discharge Date: Discharge Date: Expected LOS: Initial Reviewer: [email or web address] Initial Review Date: 09/02/2019 Generated: 09/02/19 6:14 pm Comments DCP- Discharge Planning Updated by [email or web address]: Ioana Brady on 09/02/19 4:[address] Patient Name: ZIA FITZGERALD Admission Status: ER Accout number: [id number] Admission Date: 09-02-2019 : 1940 Admission Diagnosis: Attending: DALE TONEY Current LOS: 1 Anticipated DC Date: Planned Disposition: Primary Insurance: [employer] PPO MCR ADVANT Discharge Planning Comments: CM SPOKE WITH PRIMARY NURSE AFTER CONCERNS OF PATIENT NEGLECT AT HOME. I AM VERY FAMILIAR WITH MR. FITZGERALD FROM A PREVIOUS ADMIT AND AM CONCERNED HE IS NEGLECTED AND TAKEN ADVANTAGE OF AT HOME. HE LIVES AT THE [facility] WITH HIS AND GROWN ADULT SON. HE HAS NOT BEEN TAKING HIS MEDICINE BECAUSE HE CAN NOT AFFORD IT. I AM CONCERNED THE LIMITED INCOME HIM AND HIS RECEIVE IS POSSIBLY BEING TAKEN BY THE SON. THE PRIMARY NURSE STATED PATIENT WAS ALSO COVERED WITH DRIED FECES AND CLOTHING VERY DIRTY. SEE NURSES NOTES FOR MORE DETAIL. I HAVE CALLED APS AND MADE A REPORT, . CM TO FOLLOW AND ASSIST. Structural Steel Equipment Erector: Ioana Brady Last DP export: 09/02/19 4:07 Patient Name: ZIA FITZGERALD Page 30967 at 3400 All edits/amendments must be made on the electronic document DICTATION DATE: 09/02/191713 COUNTER PROFESSIONAL: MAHI 09/02/191713 RPT#: [id number] DC DATE: STATUS: ADM IN [facility] [address] [facility] [place] [address] END OF REPORT
[2019-09-02 17:24] LABS: UDS - AMPHET NEGATIVE QUAL (NEGATIVE); UDS - BARB NEGATIVE QUAL (NEGATIVE); UDS - BENZO NEGATIVE QUAL (NEGATIVE); UDS - COCAINE NEGATIVE QUAL (NEGATIVE); UDS - OPIATE NEGATIVE QUAL (NEGATIVE); UDS - PCP NEGATIVE QUAL (NEGATIVE); UDS - THC NEGATIVE QUAL (NEGATIVE)
[2019-09-02 17:27] LABS: APPEARANCE CLEAR (CLEAR); BILIRUBIN NEGATIVE (NEGATIVE); COLOR YELLOW (YELLOW); GLUCOSE NEGATIVE (NEGATIVE); KETONE NEGATIVE (NEGATIVE); NITRITE NEGATIVE (NEGATIVE); PROTEIN NEGATIVE (NEGATIVE); SPECIFIC GRAVITY 1.015 (1.005-1.020); UROBILINOGEN NORMAL (NORMAL)
[2019-09-02 18:24] VITALS: BP 150/67
--- NOTE | 2019-09-02 19:23 | NUR ---
PATIENT RESTING IN BED WITH NO S/S OF DISTRESS. ASSISTED PATIENT REPOSITIONING IN BED. PATIENT DENIES OTHER NEEDS AT THIS TIME. BED IN LOWEST POSITION AND CALL LIGHT WITHIN REACH. ENCOURAGED THE PATIENT TO CALL IF HE HAS NEEDS. WILL CONTINUE TO MONITOR.
[2019-09-03 03:55] VITALS: BP 117/61
[2019-09-03 06:10] LABS: BASOPHILS 0.2 % (0-2); EOSINOPHILS 1.9 % (0-7); HEMATOCRIT 39.1 % (42.0-54.0); HEMOGLOBIN 12.5 g/dL (13.5-17.5); IMMATURE GRANULOCYTES 0.2 % (0-5); LYMPHOCYTES 14.5 % (15-50); MCH 30.2 pg (26.0-34.0); MCV 94.4 fL (80.0-100.0); NEUTROPHILS 77.2 % (40-80); PLATELET COUNT 161 10x3/uL (130-400); RBC 4.14 10x6/uL (4.20-6.10); RDW 14.2 % (11.5-14.5)
[2019-09-03 06:26] LABS: WBC 9.3 10x3/uL (4.8-10.8)
[2019-09-03 06:29] LABS: CALC OSMOLALITY 277 mosm/kg (275-300); CALCIUM 8.8 mg/dL (8.5-10.1); CARBON DIOXIDE 26.9 mmol/L (21.0-32.0); CHLORIDE - SERUM 102 mmol/L (98-107); CREATININE - SERUM 0.7 mg/dL (0.6-1.3); GLUCOSE 114 mg/dL (74-106); MAGNESIUM - SERUM 2.1 mg/dL (1.8-2.4); SODIUM 138 mmol/L (136-145); eGFR NON AFRICAN AMERICAN > 90 mL/min (90-120)
[2019-09-03 06:31] LABS: UREA NITROGEN 15 mg/dL (7-18)
--- NOTE | 2019-09-03 08:19 | NUR ---
ALERT WITH CONFUSION. VERY [place]. BREKFAST SERVED AND SET UP. EATING AT THIS TIME. CL IN REACH.
[2019-09-03 08:23] VITALS: BP 125/67
--- NOTE | 2019-09-03 10:34 | NUR ---
AND SON HERE AND TOOK PATIENTS WALLET WITH THEM. ASKED PATIENT IF OK TO LET THEM TAKE IT AND HE SAID YE. WITNESSED BY MYSELF AND SOLOMON CAMPOS. PATIENT WAS ASKED FOR PASSWORD TO GIVE SON/ INFORMATION AND HE SAID TO GIVE THEM INFORMATION. HIS PASSWORD IS THANKSGIVING.
--- NOTE | 2019-09-03 10:39 | NUR ---
SPOKE WITH JULI MARQUEZ BEFORE I SPOKE WITH FAMILY TO BE SURE IT WAS OK TO GIVE THEM INFORMATION.
--- NOTE | 2019-09-03 12:22 | NUR ---
NO CHANGE IN ASSESSMENT. RESTING WO DISTRESS. CL IN REACH.
[2019-09-03 13:17] VITALS: Ht 170.2 cm; Wt 60.3 kg
[2019-09-03 14:42] VITALS: BP 112/55
--- NOTE | 2019-09-03 15:37 | NUR ---
OT NOTE: PT COMPLETED BED MOB TASKS WITH MOD A. PT COMPLETED LB HYGIENE TASKS WITH MOD A. THANK YOU, JEIMY GARCIA
--- NOTE | 2019-09-03 15:38 | MORECARE ---
CASE MANAGEMENT DISCHARGE SUMMARY PATIENT: ZIA FITZGERALD UNIT: [id number] ADM DATE: 09/02/19 AGE: 78 : 39 SEX: M ROOM/BED: D.1211 AUTHOR: QAMAR BENZ PHYSICIAN: REFERRING PHYSICIAN: DALE TONEY MD DATE OF SERVICE: 09/03/19 Discharge Plan Patient Name: ZIA FITZGERALD Facility: [facility]:[place] : 1940 Planned Disposition: Home Anticipated Discharge Date: Discharge Date: Expected LOS: Initial Reviewer: [id number] Initial Review Date: 09/02/2019 Generated: 09/03/19 4:37 pm DCP- Discharge Planning Updated by [email or web address]: Ioana Brady on 09/02/19 4:[address] Patient Name: ZIA FITZGERALD Admission Status: ER Accout number: [id number] Admission Date: 09-02-2019 : 1940 Admission Diagnosis: Attending: DALE TONEY Current LOS: 1 Anticipated DC Date: Planned Disposition: Primary Insurance: HU[employer]NA CHOICE PPO MCR [facility] Discharge Planning Comments: CM SPOKE WITH PRIMARY NURSE AFTER CONCERNS OF PATIENT NEGLECT AT HOME. I AM VERY FAMILIAR WITH MR. FITZGERALD FROM A PREVIOUS ADMIT AND AM CONCERNED HE IS NEGLECTED AND TAKEN ADVANTAGE OF AT HOME. HE LIVES AT THE [facility] WITH HIS AND GROWN ADULT SON. HE HAS NOT BEEN TAKING HIS MEDICINE BECAUSE HE CAN NOT AFFORD IT. I AM CONCERNED THE LIMITED INCOME HIM AND HIS RECEIVE IS POSSIBLY BEING TAKEN BY THE SON. THE PRIMARY NURSE STATED PATIENT WAS ALSO COVERED WITH DRIED FECES AND CLOTHING VERY DIRTY. SEE NURSES NOTES FOR MORE DETAIL. I HAVE CALLED APS AND MADE A REPORT, . CM TO FOLLOW AND ASSIST. Tongue Binder: Ioana Brady Last DP export: 09/02/19 4:15 Patient Name: ZIA FITZGERALD Page 97808 at 1538 All edits/amendments must be made on the electronic document DICTATION DATE: 09/03/191536 DESIGN MANAGER: MAHI 09/03/191536 RPT#: [id number] DC DATE: STATUS: ADM IN [facility] [address] [facility] [place] [address] END OF REPORT
--- NOTE | 2019-09-03 15:48 | MORECARE ---
CASE MANAGEMENT DISCHARGE SUMMARY PATIENT: ZIA FITZGERALD UNIT: [id number] ADM DATE: 09/02/19 AGE: 78 : 39 SEX: M ROOM/BED: D.1211 AUTHOR: DEMAR,DOC PHYSICIAN: REFERRING PHYSICIAN: DALE TONEY MD DATE OF SERVICE: 09/03/19 Discharge Plan Patient Name: ZIA FITZGERALD Facility: [facility]:[place] : 1940 Planned Disposition: Home Anticipated Discharge Date: Discharge Date: Expected LOS: Initial Reviewer: [id number] Initial Review Date: 09/02/2019 Generated: 09/03/19 4:47 pm Comments DCP- Discharge Planning Updated by [email or web address]: Bennett Khalil on 09/03/19 2:[address] Patient Name: ZIA FITZGERALD Encounter No: [id number] : 1940 Primary Insurance: HUMANA CHOICE PPO MCR ADVANT Anticipated DC Date: Planned Disposition: Home DCP follow-up note: CM RECEIVED ORDER FOR PLACEMENT. CM MET WITH PT IN ROOM TO DISCUSS DISCHARGE PLANNING AND NEEDS. PT VERY HEARD OF HEARING. PT REPORTS LIVING AT [facility], NOT [facility] HE WAS BEFORE, BUT A DIFFERENT ONE, HE CANNOT REMEMBER THE NAME OF IT. PT LIVES WITH HIS AND SON WHO ASSIST HIM AT HOME. CM ASKED ABOUT BEING ABUSED OR NEGLECTED TO INCLUDE SOMEONE TAKING HIS MONEY OR MEDICINE FROM HIM. PT STATES HE IS NOT. PT REPORTS FEELING SAFE WITH HIS AND SON. CM ADVISED THAT ADULT PROTECTIVE SERVICES HAS BEEN CALLED AGAIN. PT STATES "WELL OK" PT HAS CANE AND WALKER AT HOME WITH NO MEDICAL EQUIPMENT PROVIDER PREFERENCE. PT STATES HE DOES NOT KNOW IF HE HAS A FAMILY OR PRIMARY CARE DOCTOR. PT HAS NO OUTSIDE SERVICES ASSISTING IN THE HOME. CM DISCUSSED AVAILABILITY OF HOME HEALTH, REHAB SERVICES AND MEDICAL EQUIPMENT. PT DENIES DISCHARGE NEEDS, REPORTS HIS SON WILL PICK HIM UP FOR DISCHARGE HOME. CM OFFERED LONGTERM PLACEMENT, PT REFUSES. PT STATES HE WILL BE GOING HOME WITH HIS . CM ATTEMPTED TO CALL FAMILY, ELIER FITZGERALD, , THE NUMBER IS NOT A WORKING NUMBER. THERE WERE NO OTHER CONTACT NUMBERS IN PATIENTS CHART. CM CALLED [facility] PT'S CHART INDICATED THAT HE USED THEM IN THE PAST, ; JENNIFER ADVISED THAT PT HAS NEVER BEEN ADMITTED TO [facility] IN THE PAST. PT REFUSES LONGTERM AND REHAB PLACEMENT. PT WILL ONLY AGREE TO GO BACK TO [facility] WITH HIS AND SON. PT DENIES ANY ABUSE OR NEGLECT IS HAPPENING TO HIM. FAMILY TO TRANSPORT HOME AT DISCHARGE. CM TO FOLLOW AND ASSIST NEEDED. Bennett Khalil, CASE MANAGEMENT DCP- Discharge Planning Updated by [id number]: Ioana Caitlyn on 09/02/19 4:[address] Patient Name: ZIA FITZGERALD Admission Status: ER Accout number: [id number] Admission Date: 09-02-2019 : 1940 Admission Diagnosis: Attending: DALE TONEY Current LOS: 1 Anticipated DC Date: Planned Disposition: Primary Insurance: HU[employer]NA CHOICE PPO MCR ADVANT Discharge Planning Comments: CM SPOKE WITH PRIMARY NURSE AFTER CONCERNS OF PATIENT NEGLECT AT HOME. I AM VERY FAMILIAR WITH MR. FITZGERALD FROM A PREVIOUS ADMIT AND AM CONCERNED HE IS NEGLECTED AND TAKEN ADVANTAGE OF AT HOME. HE LIVES AT THE [facility] WITH HIS AND GROWN ADULT SON. HE HAS NOT BEEN TAKING HIS MEDICINE BECAUSE HE CAN NOT AFFORD IT. I AM CONCERNED THE LIMITED INCOME HIM AND HIS RECEIVE IS POSSIBLY BEING TAKEN BY THE SON. THE PRIMARY NURSE STATED PATIENT WAS ALSO COVERED WITH DRIED FECES AND CLOTHING VERY DIRTY. SEE NURSES NOTES FOR MORE DETAIL. I HAVE CALLED APS AND MADE A REPORT, . CM TO FOLLOW AND ASSIST. Inspector Heating And Refrigeration: Ioana Caitlyn DCPIA - Discharge Planning Initial Assessment Updated by [email or web address]: Bennett Khalil on 09/03/19 3:40 pm * Is the patient Alert and Oriented? Yes * How many steps to enter\\exit or inside your home? 2-3 * PCP NONE * Pharmacy [facility], PATIENT IS NOT SURE WHICH ONE. * Preadmission Environment Home with Family * ADLs Partial Dependent * Partial ADLs (Assistance needed) Ambulation Bathing Medication Management Transfers * Equipment Walker Wheelchair * Other Equipment NO MEDICAL EQUIPMENT PROVIDER PREFERNCE * List name and contact numbers for known caregivers / representatives who currently or will assist patient after discharge: ELIER FITZGERALD, SON, PHONE NUMBER UNKNOWN * Verbal permission to speak to the caregivers and representatives has been obtained from the patient. Yes * Community resources currently utilized None * Please name any agencies selected above. NONE * Additional services required to return to the preadmission environment? No * Can the patient safely return to the preadmission environment? Yes * Has this patient been hospitalized within the prior 30 days at any hospital? No Last DP export: 09/03/19 2:38 Patient Name: ZIA FITZGERALD Page 34047 at 1548 All edits/amendments must be made on the electronic document DICTATION DATE: 09/03/191546 LAY OUT CARPENTER: MAHI 09/03/191546 RPT#: [id number] DC DATE: STATUS: ADM IN [facility] [address] [place] [address] END OF REPORT
--- NOTE | 2019-09-03 16:55 | NUR ---
ACCIDENT BM X2 ON LINENS TODAY. CHANGED LINENS AND GOWN AND BATHED PATIENT.
--- NOTE | 2019-09-03 17:17 | NUR ---
NO CHANGE IN ASSESSMENT. DURAGESIC PATCH ORDERED AND PLACED ON PATIENT. DR FLORENCE SAW PATIENT THIS AFTERNOON.
--- NOTE | 2019-09-03 19:15 | NUR ---
CLEANED PATIENT UP AFTER INCONTINENT EPISODE AND CHANGED ALL LINENS. ALSO ASSISTED PATIENT TO AND FROM THE BSC. PATIENT DENIES OTHER NEEDS AT THIS TIME. BED IN LOWEST POSITION AND CALL LIGHT WITHIN REACH. ENCOURAGED THE PATIENT TO CALL IF HE HAS NEEDS.
[2019-09-03 20:21] VITALS: BP 129/72
--- NOTE | 2019-09-04 03:38 | NUR ---
PATIENT RESTING IN BED WITH EYES CLOSED AND NO S/S OF DISTRESS. BED IN LOWEST POSITION AND CALL LIGHT WITHIN REACH. WILL CONTINUE TO MONITOR.
[2019-09-04 04:30] VITALS: BP 111/56
[2019-09-04 06:10] LABS: BASOPHILS 0.2 % (0-2); EOSINOPHILS 2.3 % (0-7); HEMATOCRIT 37.1 % (42.0-54.0); HEMOGLOBIN 11.9 g/dL (13.5-17.5); IMMATURE GRANULOCYTES 0.3 % (0-5); MCH 30.2 pg (26.0-34.0); MCHC 32.1 g/dL (31.0-37.0); MCV 94.2 fL (80.0-100.0); MEAN PLATELET VOLUME 10.9 fL (7.4-10.4); MONOCYTES 7.8 % (2-11); NEUTROPHILS 75.4 % (40-80); PLATELET COUNT 135 10x3/uL (130-400); RBC 3.94 10x6/uL (4.20-6.10); WBC 9.9 10x3/uL (4.8-10.8)
[2019-09-04 06:26] LABS: CALC OSMOLALITY 273 mosm/kg (275-300); CALCIUM 8.4 mg/dL (8.5-10.1); CARBON DIOXIDE 29.4 mmol/L (21.0-32.0); CHLORIDE - SERUM 101 mmol/L (98-107); CREATININE - SERUM 0.7 mg/dL (0.6-1.3); GLUCOSE 99 mg/dL (74-106); MAGNESIUM - SERUM 2.1 mg/dL (1.8-2.4); SODIUM 137 mmol/L (136-145); UREA NITROGEN 12 mg/dL (7-18); eGFR NON AFRICAN AMERICAN > 90 mL/min (90-120)
--- NOTE | 2019-09-04 07:18 | NUR ---
ALERT. POOR VISION. DEAF. INCONT BOWEL. USES URINAL. BED ALARM ON. ATTEMPTS TO GET UP. DIFFICULT TO COMMUNICATE WITH. CL IN REACH. RAILS UP X2.
[2019-09-04 08:01] VITALS: BP 101/62
[2019-09-04 11:13] VITALS: BP 107/59
--- NOTE | 2019-09-04 11:47 | NUR ---
RESTING WO DISTRESS. RESP EVEN AND UNLABORED. CL IN REACH.
--- NOTE | 2019-09-04 11:55 | NUR ---
Rehab Note- Acute Inpatient REhab prescreen order received. The patient has [employer] insurance and will require a PreAuth prior to an acute inpatient rehab stay. Will begin the PreAuth process. Will follow at this time. THank you for this referral! Becca Mina RN Clinical Liaison, [facility] Rehab
--- NOTE | 2019-09-04 12:51 | MORECARE ---
CASE MANAGEMENT DISCHARGE SUMMARY PATIENT: ZIA FITZGERALD UNIT: [id number] ADM DATE: 09/02/19 AGE: 78 : 39 SEX: M ROOM/BED: D.1211 AUTHOR: DEMAR,DOC PHYSICIAN: REFERRING PHYSICIAN: DALE TONEY MD DATE OF SERVICE: 09/04/19 Discharge Plan Patient Name: ZIA FITZGERALD Facility: [facility]:[place] : 1940 Planned Disposition: Home Anticipated Discharge Date: Discharge Date: Expected LOS: Initial Reviewer: [email or web address] Initial Review Date: 09/02/2019 Generated: 09/04/19 1:51 pm Comments DCP- Discharge Planning Updated by [id number]: Sarah Collins on 09/04/19 11:[address] Patient very hard of hearing. CM presented his with a piece of paper stating the MD felt he needed to go to Inpatient Rehab. Asked if he was wiling to go to [place] rehab. He read the paper and said yes. CM verbally asked him if he was agreeable to IN Rehab and he said yes. CM notified Becca with rehab that the patient at this time is agreeable to go to rehab. Sarah Collins RN, [facility] DCP- Discharge Planning Updated by [id number]: Bennett Khalil on 09/03/19 2:[address] Patient Name: ZIA FITZGERALD Encounter No: [id number] : 1940 Primary Insurance: HU[employer]NA CHOICE PPO MCR ADVANT Anticipated DC Date: Planned Disposition: Home DCP follow-up note: CM RECEIVED ORDER FOR PLACEMENT. CM MET WITH PT IN ROOM TO DISCUSS DISCHARGE PLANNING AND NEEDS. PT VERY HEARD OF HEARING. PT REPORTS LIVING AT [facility], NOT [facility] HE WAS BEFORE, BUT A DIFFERENT ONE, HE CANNOT REMEMBER THE NAME OF IT. PT LIVES WITH HIS AND SON WHO ASSIST HIM AT HOME. CM ASKED ABOUT BEING ABUSED OR NEGLECTED TO INCLUDE SOMEONE TAKING HIS MONEY OR MEDICINE FROM HIM. PT STATES HE IS NOT. PT REPORTS FEELING SAFE WITH HIS AND SON. CM ADVISED THAT ADULT PROTECTIVE SERVICES HAS BEEN CALLED AGAIN. PT STATES "WELL OK" PT HAS CANE AND WALKER AT HOME WITH NO MEDICAL EQUIPMENT PROVIDER PREFERENCE. PT STATES HE DOES NOT KNOW IF HE HAS A FAMILY OR PRIMARY CARE DOCTOR. PT HAS NO OUTSIDE SERVICES ASSISTING IN THE HOME. CM DISCUSSED AVAILABILITY OF HOME HEALTH, REHAB SERVICES AND MEDICAL EQUIPMENT. PT DENIES DISCHARGE NEEDS, REPORTS HIS SON WILL PICK HIM UP FOR DISCHARGE HOME. CM OFFERED SHELTER PLACEMENT, PT REFUSES. PT STATES HE WILL BE GOING HOME WITH HIS . CM ATTEMPTED TO CALL FAMILY, ELIER FITZGERALD, , THE NUMBER IS NOT A WORKING NUMBER. THERE WERE NO OTHER CONTACT NUMBERS IN PATIENTS CHART. CM CALLED [facility] PT'S CHART INDICATED THAT HE USED THEM IN THE PAST, ; JENNIFER ADVISED THAT PT HAS NEVER BEEN ADMITTED TO [facility] IN THE PAST. PT REFUSES SHELTER AND REHAB PLACEMENT. PT WILL ONLY AGREE TO GO BACK TO [facility] WITH HIS AND SON. PT DENIES ANY ABUSE OR NEGLECT IS HAPPENING TO HIM. FAMILY TO TRANSPORT HOME AT DISCHARGE. CM TO FOLLOW AND ASSIST NEEDED. Bennett Khalil, CASE MANAGEMENT DCP- Discharge Planning Updated by [id number]: Ioana Brady on 09/02/19 4:[address] Patient Name: ZIA FITZGERALD Admission Status: ER Accout number: [id number] Admission Date: 09-02-2019 : 1940 Admission Diagnosis: Attending: DALE TONEY Current LOS: 1 Anticipated DC Date: Planned Disposition: Primary Insurance: [employer] CHOICE PPO [facility] ADVANT Discharge Planning Comments: CM SPOKE WITH PRIMARY NURSE AFTER CONCERNS OF PATIENT NEGLECT AT HOME. I AM VERY FAMILIAR WITH MR. FITZGERALD FROM A PREVIOUS ADMIT AND AM CONCERNED HE IS NEGLECTED AND TAKEN ADVANTAGE OF AT HOME. HE LIVES AT THE [facility] WITH HIS AND GROWN ADULT SON. HE HAS NOT BEEN TAKING HIS MEDICINE BECAUSE HE CAN NOT AFFORD IT. I AM CONCERNED THE LIMITED INCOME HIM AND HIS RECEIVE IS POSSIBLY BEING TAKEN BY THE SON. THE PRIMARY NURSE STATED PATIENT WAS ALSO COVERED WITH DRIED FECES AND CLOTHING VERY DIRTY. SEE NURSES NOTES FOR MORE DETAIL. I HAVE CALLED APS AND MADE A REPORT, . CM TO FOLLOW AND ASSIST. Infirmary Attendant: Ioana Brady DCPIA - Discharge Planning Initial Assessment Updated by [id number]: Bennett Khalil on 09/03/19 3:40 pm * Is the patient Alert and Oriented? Yes * How many steps to enter\\exit or inside your home? 2-3 * PCP NONE * Pharmacy [facility], PATIENT IS NOT SURE WHICH ONE. * Preadmission Environment Home with Family * ADLs Partial Dependent * Partial ADLs (Assistance needed) Ambulation Bathing Medication Management Transfers * Equipment Walker Wheelchair * Other Equipment NO MEDICAL EQUIPMENT PROVIDER PREFERNCE * List name and contact numbers for known caregivers / representatives who currently or will assist patient after discharge: ELIER FITZGERALD, SON, PHONE NUMBER UNKNOWN * Verbal permission to speak to the caregivers and representatives has been obtained from the patient. Yes * Community resources currently utilized None * Please name any agencies selected above. NONE * Additional services required to return to the preadmission environment? No * Can the patient safely return to the preadmission environment? Yes * Has this patient been hospitalized within the prior 30 days at any hospital? No Last DP export: 09/03/19 2:48 Patient Name: ZIA FITZGERALD Page 83899 at 1251 All edits/amendments must be made on the electronic document DICTATION DATE: 09/04/19 125 FINISH SAW OPERATOR: MAHI 09/04/19 1250 RPT#: [id number] DC DATE: STATUS: ADM IN [facility] [address] [place] [address] END OF REPORT
--- NOTE | 2019-09-04 14:33 | NUR ---
OT NOTE: REQUIRED MIN/MOD ASSIST WITH BED MOB TO INCLUDE SUPINE TO SIT; ABLE TO WASH FACE AND HANDS WITH WASHCLOTH AND SET UP; SIT TO STAND WITH MIN ASSIST; STANDING WITH WALKER WITH MIN ASSIST X 2; PT INCONT OF BOWEL AND REQUIRED EXTENSIVE CLEANING.. PT UNABLE TO ASSIST WITH THIS. PT ABLE TO STAND FOR 3 MIN WHILE CLEANING PERINEAL AREA, PT THEN BEGAN CROSSING FEET AND LEANING TO SIDE; MAX ASSIST BACK TO BED. DIFFICULT TO COMMUNICATE WITHOUT WRITTING SENTENCES TO PT DUE TO COMPLETE HEARING LOSS. PT IS UNSAFE TO RETURN HOME AT THIS TIME HE REQUIRES ASSIST WITH ADLS AND MOBILITY. PT IS VERY WEAK AND DECONDITIONED. RECOMMEND IP REHAB. [facility]
--- NOTE | 2019-09-04 15:09 | NUR ---
OT NOTE: PT COMPLETED TOILETING TASK WITH MOD A. PT COMPLETED TOILET HYGIENE WITH MAX/TOTAL A. PT COMPLETED BATHING TASK WITH MAX/TOTAL A. PT COMPLETED BED TO BSC TRANSFER WITH MAX A. PT IS WEAK. THANK YOU, JEIMY GARCIA
[2019-09-04 16:07] VITALS: BP 104/60
--- NOTE | 2019-09-04 18:15 | NUR ---
RESTING QUIETLY AT THIS TIME. NO CHANGE IN ASSESSMENT. CL IN REACH.
[2019-09-04 19:12] VITALS: BP 114/64
--- NOTE | 2019-09-05 00:34 | NUR ---
PT CONFUSED AND AGGITATED. STATES HE WANTS TO GO HOME NOW. PT ALSO YELLING ACROSS THE HALLWAY, SAYING "I NEED SOME ANSWERS, I GOT INSURANCE, CHECK MY RECORD." JAD BORDEN GIVEN AT THIS TIME. FALL PRECAUTIONS IN PLACE. WILL CTM.
[2019-09-05 03:50] VITALS: BP 118/64
[2019-09-05 06:31] LABS: CALC OSMOLALITY 271 mosm/kg (275-300); CALCIUM 8.4 mg/dL (8.5-10.1); CARBON DIOXIDE 31.3 mmol/L (21.0-32.0); CHLORIDE - SERUM 99 mmol/L (98-107); CREATININE - SERUM 0.6 mg/dL (0.6-1.3); GLUCOSE 105 mg/dL (74-106); POTASSIUM - SERUM 3.9 mmol/L (3.5-5.1); SODIUM 136 mmol/L (136-145); UREA NITROGEN 13 mg/dL (7-18); eGFR NON AFRICAN AMERICAN > 90 mL/min (90-120)
[2019-09-05 06:50] LABS: BASOPHILS 0.1 % (0-2); EOSINOPHILS 2.7 % (0-7); HEMATOCRIT 39.2 % (42.0-54.0); HEMOGLOBIN 12.5 g/dL (13.5-17.5); IMMATURE GRANULOCYTES 0.2 % (0-5); LYMPHOCYTES 11.6 % (15-50); MCH 30.3 pg (26.0-34.0); MCHC 31.9 g/dL (31.0-37.0); MCV 95.1 fL (80.0-100.0); MEAN PLATELET VOLUME 11.2 fL (7.4-10.4); NEUTROPHILS 77.4 % (40-80); PLATELET COUNT 146 10x3/uL (130-400); RBC 4.12 10x6/uL (4.20-6.10); RDW 14.1 % (11.5-14.5); WBC 8.3 10x3/uL (4.8-10.8)
[2019-09-05 07:30] VITALS: BP 108/63
--- NOTE | 2019-09-05 08:42 | NUR ---
PATIENT RECIVED FROM PREVIOUS SHIFT RESTING WITH NO NEEDS VOICED. RESPIRATIONS REGULAR AND NONLABORED. CL IN REACH
--- NOTE | 2019-09-05 11:50 | NUR ---
PATIENT PULLED IV OUT, NO REDNESS OR EDEMA, NO BLEEDING.
--- NOTE | 2019-09-05 13:42 | NUR ---
Nutrition Follow-up: Diet: Regular, Mech Soft with chopped meats and thin liquids (sw precautions) PO intake: ~44% average x last 8 meals recorded Last BM: 09/04/19 x 3. Wt: 133# (09/03/19) Significant meds: rocephin. Labs and nursing skin assessment reviewed. Continue Regular diet, consistency/texture per QUANTITATIVE EQUITY HEAD. Encourage PO intake. Will add Ensure TID. RD Following.
--- NOTE | 2019-09-05 14:09 | NUR ---
Rehab Note- Call from Molly with [facility] that the patient has been denied an inpatient rehab stay. A peer to peer can be set up by 09/10/19 @ 6833, by calling [phone]. Spoke with ALMA Weiss. Thank you for this referral! Becca Mina RN Clinical Liaison, [facility] Rehab
--- NOTE | 2019-09-05 15:11 | NUR ---
OT NOTE: INCREASED AGITATION AND CONFUSION EARLIER. CONFUSION MAY BE INTENSIFIED BY SEVERE HEARING IMPAIRMENT. BED MOB WITH SPV..D/W OTHER THERAPIST THAT PT HAD PULLED OUT IV AND WAS AMB WITHOUT ASSIST IN ROOM. INCREASED DIFFICULTY WITH SIMPLE GROOMING TASK AND LE DRESSING TODAY. [facility]
--- NOTE | 2019-09-05 15:15 | NUR ---
OT NOTE: PT COMPLETED BED MOB TASKS WITH SBA. PT COMPLETED EOB SITTING WITH SPV. PT COMPLETED SIT TO STAND WITH SBA. PT COMPLETED FACE WASH WITH CUES AND SET UP. PT EXHIBITED POOR SAFETY AWARENESS. THANK YOU, JEIMY GARCIA
[2019-09-05 16:16] VITALS: BP 110/70
--- NOTE | 2019-09-05 16:20 | NUR ---
PATIENT RESTING WITH EYES CLOSED, AFTER GEODON GIVEN FOR AGGITATION. CONTINUES TO ATTEMPT TO GET OUT OF BED AT TIMES. BED ALARM ON.
[2019-09-05 19:31] VITALS: BP 115/61
--- NOTE | 2019-09-06 00:07 | NUR ---
PT APPEARS CONTINUOUSLY RESTLESS AND AGGITATED. CALLED AND NOTIFY PAINTER AND BODY WORKHUSAM ABOUT PT'S CURERENT STATE. PAINTER AND BODY WORK ORDERED 25MG IV BENADRYL ONE TIME.
--- NOTE | 2019-09-06 01:21 | NUR ---
PT FULLED OUT PIV. NO S/S OF BLEEDING NOTED. PT ALSO APPEARS INCREASINGLY CONFUSED. RESITE PIV TO LFA 22G X1 STICK. HELPED PT BACK IN BED. AND ADMINITERED PO 0.5MG PRN XANAX. WILL CTM.
[2019-09-06 04:00] VITALS: BP 111/68
[2019-09-06 06:55] LABS: CALC OSMOLALITY 278 mosm/kg (275-300); CALCIUM 8.6 mg/dL (8.5-10.1); CARBON DIOXIDE 32.3 mmol/L (21.0-32.0); CHLORIDE - SERUM 100 mmol/L (98-107); CREATININE - SERUM 0.7 mg/dL (0.6-1.3); GLUCOSE 105 mg/dL (74-106); MAGNESIUM - SERUM 2.1 mg/dL (1.8-2.4); POTASSIUM - SERUM 3.7 mmol/L (3.5-5.1); SODIUM 140 mmol/L (136-145); UREA NITROGEN 12 mg/dL (7-18); eGFR NON AFRICAN AMERICAN > 90 mL/min (90-120)
[2019-09-06 07:23] LABS: BASOPHILS 0.1 % (0-2); EOSINOPHILS 3.3 % (0-7); HEMATOCRIT 40.6 % (42.0-54.0); HEMOGLOBIN 12.9 g/dL (13.5-17.5); IMMATURE GRANULOCYTES 0.1 % (0-5); LYMPHOCYTES 12.9 % (15-50); MCH 29.9 pg (26.0-34.0); MCHC 31.8 g/dL (31.0-37.0); MCV 94.2 fL (80.0-100.0); MEAN PLATELET VOLUME 11.4 fL (7.4-10.4); MONOCYTES 8.1 % (2-11); NEUTROPHILS 75.5 % (40-80); PLATELET COUNT 152 10x3/uL (130-400); RBC 4.31 10x6/uL (4.20-6.10); RDW 13.7 % (11.5-14.5); WBC 6.9 10x3/uL (4.8-10.8)
--- NOTE | 2019-09-06 07:30 | NUR ---
PT IN BED AT THIS TIME. APPEARS CONFUSED. PT HAS ATTEMPTED TO GET OUT OF BED X4. PLACED BACK IN BED EACH TIME. RAPHAEL ALARM ON AND WORKING PROPERLY. DIANNE FERNÁNDEZ PAGED. PT IS VERY AGGITATED. CYNTHIA CONTINUE TO MONITOR.
--- NOTE | 2019-09-06 08:30 | NUR ---
SPOKE WITH DIANNE FERNÁNDEZ. CONSULT FOR USP ORDERED. SPOKE WITH BRINELL TESTER. SITTER WITH PT AT THE MOMENT
--- NOTE | 2019-09-06 09:00 | NUR ---
PT CONTINUES TO GET OUT OF BED WITH SITTER AT BEDSIDE. PT STATED HE WANTED TO LAY DOWN SO HE WAS ASSISTED TO THE FLOOR. DR. HERNANDEZ @ BEDSIDE. STATED HE WOULD ACCEPT TO [facility] AND TO GET HIM DOWN THERE JENNIFER. ALSO STATED TO LEAVE PT IN THE FLOOR ON BLANKETS AND PILLOWS DUE TO SAFETY CONCERNS. IV BLEEDING. D/C WITH CATHETER TIP INTACT. BM X1. PT CLEANED, NEW GOWN AND SHEETS PLACED. WILL D/C TO [facility].
[2019-09-06] MEDS ORDERED: IPRAT-ALBUT 0.5-3 ML INH (10:41)
[2019-09-06] MEDS ORDERED: BROVANA15 MCG/2 M INH (10:41)
[2019-09-06] MEDS ORDERED: GEODON20 M1 IM (10:41)
--- NOTE | 2019-09-06 11:28 | NUR ---
REPORT CALLED TO DONNA IN NURSING HOME. WAS TOLD HE WOULD BRING A WHEELCHAIR TO COME GET PT. Host Committee TECH SITTING WITH PT AT THIS TIME.
--- NOTE | 2019-09-06 11:33 | NUR ---
PT UNABLE TO SIGN D/C INSTRUCTIONS DUE TO CONFUSION. FAMILY CALLED X2 TO BE MADE AWARE OF SITUATION. PHONE IS OUT OF ORDER.
--- NOTE | 2019-09-06 12:20 | NUR ---
PT TRANSFERED TO [facility] VIA JOSE ROBERTO Jacobson WITH ALL BELONGINGNS.
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
== END 2019-09-06 12:23 | disposition short-term general hospital (02) | DRG 177 ==
LOC: D.ER 04:59 → D.M3 06:35
PROVIDERS: Family Medicine; Family Medicine Adult Medicine; ADMIT Family Medicine; ATTEND Family Medicine
DX: J69.0 Pneumonitis due to inhalation of food and vomit (principal); J96.21 Acute and chronic respiratory failure with hypoxia; J44.9 Chronic obstructive pulmonary disease, unspecified; F41.9 Anxiety disorder, unspecified; I48.91 Unspecified atrial fibrillation; Z86.73 Personal history of transient ischemic attack (TIA), and cerebral infarction without residual deficits; Z87.891 Personal history of nicotine dependence

== ENCOUNTER 2019-09-06 12:06 | Inpatient (IN) | payer MEDICARE ==
[~2019-09-06] VITALS: Ht 170.2 cm; Wt 64.5 kg
[2019-09-06 11:00] VITALS: BP 123/92
[~2019-09-06 12:06] MED LIST changes: +GEODON20 M1 IM; +IPRAT-ALBUT 0.5-3 ML INH
--- NOTE | 2019-09-06 12:15 | NUR ---
PATIENT ARRIVED TO UNIT VIA WHEELCHAIR, ACCOMPANIED BY ACUTE CARE STAFF, VERY CONFUSED, STRONG-WILLED, ATTEMPTING TO AMBULATE BUT EXTREMELY WEAK AND UNSTEADY, V/S MEASURED - T. 97.2, B/P 123/92, P 113, R 20. WT. 129.2. UNABLE TO OBTAIN SPO2 DUE TO PATIENT REFUSAL. SPOUSE NOTIFIED AND PROVIDED PATIENT HISTORY. PATIENT ASSISTED TO DAYROOM TO JOIN PEERS AND EAT LUNCH. SKIN TEAR NOTED TO LEFT ELBOW AND BRUISING NOTED TO RIGHT RIBS. SPOUSE ELLA FITZGERALD GAVE VERBAL CONSENT FOR [place] AND STATES THAT PATIENT HAD NO SIGNS OF CONFUSION PRIOR TO HOSPITAL ADMISSION. PATIENT QUITE AGITATED AND ANXIOUS AT THIS TIME AND VERY DIFFICULT TO RE-DIRECT.
--- NOTE | 2019-09-06 15:05 | NUR ---
PATIENT ADMITTED TO UNIT WITH INCREASING ANXIETY, ATTEMPTING TO STAND UP BYSELF. STAFF ATTEMPTED TO REDIRECT 3X. UNABLE TO REDIRECT PT. PT CONFUSED AND ALERT TO SELF ONLY. ATIVAN 2 MG AND GEODON [address] REIS ONE TIME ORDER. WILL REASSESS Q 1 HOUR FOR EFFECTIVENESS.
--- NOTE | 2019-09-06 16:05 | NUR ---
PRN IS MILDLY EFFECTIVE AT THIS TIME. PT CONTS TO MOAN AND ATTEMPT AMBULATE WITH CONSTANT REDIRECTION. WILL CONT TO MONITOR.
[2019-09-06 16:12] VITALS: BP 123/92; BMI 20.2
[2019-09-06 17:04] LABS: CHOL - HDL RATIO 2.4 ratio (2.3-4.9); LDL-HDL RATIO 1.2 ratio (1.5-3.5)
--- NOTE | 2019-09-06 21:51 | NUR ---
RECEIVED IN DAYROOM. SITTING IN A RECLINING CHAIR WITH EYES CLOSED. CALM AND COOPERATIVE WITH CARE AND ASSESSMENT. NO SIGNS OF AGGRESSION. RESTING EYES OPEN IN RECLINER AT THIS TIME. YELLS OUT. BECOMING RESTLESS. NOTED ANXIETY COMING ON. CONTINUE TO MONITOR, CONTINUE PLAN OF CARE
[2019-09-06 22:47] VITALS: BP 96/78
--- NOTE | 2019-09-07 10:00 | NUR ---
RECEIVED PT. IN DINING ROOM AT B'FAST, DROWSY, GARBLED SPEECH, NO AGGRESSION, COOPERATIVE, O2 AT 2 LPM VIA N/C, ELVIRA WELL. PT MUCH MORE CALM TODAY COMPARED TO 24 HOURS AGO. CONT POC DIRECTED.
[2019-09-07 10:39] VITALS: Ht 170.2 cm; Wt 64.5 kg
[2019-09-07 15:21] VITALS: BP 109/60
--- NOTE | 2019-09-07 19:40 | NUR ---
SPOUSE, ELLA FITZGERALD, CALLED TO CHECK ON PATIENT'S CONDITION. STATED THAT SPOUSE EXHIBITED NO CONFUSION WHILE AT HOME.
[2019-09-07 20:23] VITALS: BP 97/55
--- NOTE | 2019-09-07 22:33 | NUR ---
PT REPORTS HE IS VERY FEELING VERY ANXIOUS AND WAS ASKING IF HE HAD ANYTHING. ATIVAN 0.5MG PO ADMINISTERED PER ORDERS.
--- NOTE | 2019-09-08 00:33 | NUR ---
REC'D PATIENT SITTING IN THE CHAIR IN THE DAYROOM. ON O2 AT 2L/MIN PER NC. PT VERY YUHAAVIATAM HOWEVER IS ABLE TO INTERACT WITH STAFF AND TELL WHEN HE WORKED AT THE [employer]. UNSURE IF HE UNDERSTANDS ALL CONTENT WHEN TALING WITH PATIENT DUE TO IMPAIRED ABILITY TO HEAR. ADMINISTER MEDS AND MONITOR COMPLIANCE. OBSERVE PATIENT FOR DISROBING AND REDIRECT NEEDED. MED COMPLIANT. APPPROPRIATE BEHAVIOR WITH NO BEHAVIORS OF DISROBING. CONTINUE POC AND PROVIDE SAFE ENVIRONMENT.
[2019-09-08 08:26] VITALS: BP 98/53
--- NOTE | 2019-09-08 10:04 | NUR ---
PT SITTING AND WATCHING NEWS AT THIS TIME. RESP EVEN AND NONLABORED. PT O2 SAT AT 2 L VIA N/C. PT IS VERY PLESANT WITH STAFF AND PEERS. PT IS VERY NEWHALEN. COMPLIANT WITH MEDS, VITALS AND ASSESSMENT. CAN MAKE SOME NEEDS KNOWN. CHAIR ALARM IN PLACE AND ACTIVE. WILL CONT PLAN OF CARE.
--- NOTE | 2019-09-08 10:40 | NUR ---
The patient's spouse called and she asked about the patient's status. Explained to her that he is confused, but he is pleasant. He is not showing any aggression, he is leaving his clothes on and oxygen. She said "Well, he is confused because he probabley doesn't know what is going on and no one has told him he has dementia, is that what they still think it is?" Explained to her that "Yes, ma'am, but he is not going to understand he has dementia because he will forget in five to ten minutes." She said "Oh, his Mother had dementia, if that matters." Explained to her that yes, it is often hereditary." She said "Oh." She also said she would like him to have a flu and pneumonia vaccine, but she could not recall if or when he ever had a pneumonia vaccine. She said Dr. Kevin Vidal used to be his
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
--- NOTE | 2019-09-08 15:37 | NUR ---
PT C/O OF CHEST PAIN. VITALS SIGNS AND EKG OBTAINED. UPDRAFT TX ADMINISTERED. 120/72, P: 89. EKG OBTAINED AND NO ABNORMALITIES NOTED PER RESPITORY. WILL CONT 02 AT 2 LPM VIA N/C. WILL CONT TO MONITOR.
--- NOTE | 2019-09-08 17:40 | NUR ---
pt no longer c/o's of chest pain. will cont to monitor.
[2019-09-08 20:00] VITALS: BP 110/54
--- NOTE | 2019-09-08 21:59 | NUR ---
PATIENT IS SHOWING MORE CONFUSION THIS EVENING THAN YESTERDAY, HE IS TALKING ABOUT GOING HOME. HE IS ANXIOUS, THEREFORE PO ATIVAN GIVEN FOR ANXIETY. WILL FOLLOW UP. COMPLIANT WITH MEDS.
--- NOTE | 2019-09-09 09:00 | NUR ---
REC'D PT SITTING IN CHAIR AWAITING BREAKFAST. PT IS ALERT AND ORIENTED TO SELF ONLY. PT IS CONFUSED AND HARD OF HEARING. PT ON 2 L OF O2 AT 2 LPM. PT HAS NEW ORDERS FOR MEDICATION TO HELP WITH COUGH. PT REQUIRES ASSISTANCE WITH TOILETING. PT CAN MAKE NEEDS KNOWN. DENIES ANY PAIN. PT DID REQUEST SOMETHING FOR HIS NERVES. CHAIR ALARM IN PLACE AND ACTIVE.
--- NOTE | 2019-09-09 10:00 | NUR ---
NURSE ADMINISTERED ATIVAN 0.5 MG PO FOR ANXIETY. WILL REASSESS Q 1 HOUR FOR EFFECTIVENESS.
--- NOTE | 2019-09-09 10:20 | NUR ---
PT FLU SHOT GIVEN IN LD. TOLERATED WELL.
[2019-09-09 10:36] VITALS: BP 128/67
--- NOTE | 2019-09-09 11:00 | NUR ---
PATIENT PRN EFFECTIVE AT THIS TIME.
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
--- NOTE | 2019-09-09 19:43 | NUR ---
RECEIVED IN HALLWAY. SITTING IN A WHEELCHAIR WITH PEERS AT HIS SIDE. O2 AT 2L. CALM AND COOPERATIVE WITH CARE AND ASSESSMENT. CONFUSED. REDIRECT AND REORIENT NEEDED. CONTINUES TO SIT QUIETLY IN WHEELCHAIR. CONTINUE PLAN OF CARE
[2019-09-10 08:18] VITALS: BP 111/61
--- NOTE | 2019-09-10 11:11 | NUR ---
SITTING IN WHEELCHAIR WITH O2 ON AT 2L\NC. HE IS AWAKE AND CONFUSED. CALM AND COOPERATIVE WITH CARE AND ASSESSMENT. NO BEHAVIORS NOTED. REDIRECT AND REORIENT NEEDED. CONTINUE PLAN OF CARE.
--- NOTE | 2019-09-10 11:22 | NUR ---
NUTRITION F/U CHART REVIEWED. PT TOLERATING REG DIET BUT RECENT PO INTAKE ONLY ~35 % AVERAGE. BM RECORDED ON 09/08/19. WILL ADD ENSURE TO MEALS AND CONTINUE TO MONITOR PO INTAKE AND WT. RD FOLLOWING
--- NOTE | 2019-09-10 12:29 | PN ---
PATIENT:ZIA FITZGERALD MEDICAL RECORD: [id number] LOCATION:[facility] ADMISSION DATE: 09/06/19 PROGRESS NOTE DATE OF SERVICE: 09/09/2019 SUBJECTIVE: The patient's case was discussed with staff. He has no new complaint. OBJECTIVE: The patient is in good behavioral control, although he is quite confused. He certainly did not sleep well last night. He has almost no insight about his situation and severe impairment of his short-term memory. ASSESSMENT: Dementia. PLAN: The patient is going to be given trazodone to assist with sleep consolidation. He will be monitored for clinical changes associated with its use. Long-term prognosis is guarded. TRANSINT:[id number] Voice Confirmation ID: [id number] DOCUMENT ID: [id number] GRACY REIS MD at 1229 CC: [id number] DICTATION DATE: 09/09/19 1347 SENIOR UI DESIGNER: 09/09/192015 ADM IN [facility] [address] [place] [id number]
--- NOTE | 2019-09-10 20:28 | NUR ---
RECEIVED IN DINING AREA WITH PEERS AT HIS SIDE. CALM AND OOPERATIVE WITH ACRE AND ASSESSMENT. CONFUSED. REDIERCT AND ERORIENT NEEDED. RESTING IN BED WITH EYES CLOSED. CONTINUE PLAN OF CARE
[2019-09-10 22:02] VITALS: BP 115/57
[2019-09-11 08:00] VITALS: BP 138/70
--- NOTE | 2019-09-11 10:41 | NUR ---
RECEIVED PT. IN DINING ROOM AT B'FAST, ALERT, CALM, COOPERATIVE, CONFUSED. MEDS ADMIN PER ORDERS WITH COMPLETE MED COMPLIANCE NOTED. CONT ON O2 CONTINUOUSLY VIA N/C. SPOUSE CALLED THIS A.M. AND CHECKED ON PATIENT'S PROGRESS AND STATED SHE WOULD BE HERE TODAY FOR VISITATION IF THEY COULD GET TRANSPORTATION. COOPERATIVE WITH POC. CONT POC DIRECTED.
--- NOTE | 2019-09-11 12:41 | PN ---
PATIENT:ZIA FITZGERALD MEDICAL RECORD: [id number] LOCATION:[facility] ADMISSION DATE: 09/06/19 PROGRESS NOTE DATE OF SERVICE: 09/10/2019 SUBJECTIVE: The patient's case was discussed with staff. He has no new complaint. OBJECTIVE: The patient is much better today. He is impaired cognitively, but he is able to talk with me in an adequate way. He is clearly impaired cognitively. He has not been aggressive. ASSESSMENT: Dementia. PLAN: The patient is going to be treated with Aricept. He will be monitored for clinical changes associated with its use. His long-term prognosis is guarded. TRANSINT:[id number] Voice Confirmation ID: [id number] DOCUMENT ID: [id number] GRACY REIS MD at 1241 CC: [id number] DICTATION DATE: 09/10/19 1319 ANIMAL CARE ASSISTANT: 09/10/19 1653 ADM IN [place] [id number] [place] [address]
--- NOTE | 2019-09-11 18:49 | NUR ---
PATIENT PLEASANT AND CONFUSED. NO ADVERSE BEHAVIORS.
--- NOTE | 2019-09-11 19:55 | NUR ---
RECEIVED IN DAYROOM. SITTING IN A RECLINING CHAIR WITH PEERS AT HIS SIDE. CONFUSED. CALM AND COOPERATIVE WITH CARE AND ASSESSMENT. ENCOURAGE TO EXPRESS NEEDS. REDIRECT AND REORIENT NEEDED. SITTING CALMLY IN RECLINER. CONTINUE PLAN OF CARE
[2019-09-11 22:55] VITALS: BP 160/80
[2019-09-12 08:00] VITALS: BP 109/52
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
--- NOTE | 2019-09-12 17:44 | NUR ---
PATIENT PLEASANT AND COOPERATIVE THIS SHIFT. MED COMPLIANT. NO BEHAVIORAL ISSUES NOTED. CONT POC DIRECTED.
[2019-09-12 20:30] VITALS: BP 106/58
--- NOTE | 2019-09-13 | NUR ---
PATIENT IS CONFUSED, INCONTINENT, ON OXYGEN, LABORED BREATHING WITH EXERTION, HE CAN MAKE BASIC NEEDS KNOWN. NEEDS HELP WITH ALL ADL'S. WILL FOLLOW POC
[2019-09-13 08:51] VITALS: BP 106/80
--- NOTE | 2019-09-13 13:31 | NUR ---
Nutrition Follow-up: Diet: Regular + Ensure TID PO intake: ~69% average x last 9 meals Last BM: 09/12/19. Wt: 130# (09/09/19); Admit wt: 129# (09/06/19) Meds reviewed, no new labs. Continue current nutrition regimen. RD following.
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
[2019-09-13 20:20] VITALS: BP 100/56
--- NOTE | 2019-09-13 23:25 | NUR ---
B) Patient is alert and oriented to person, calm and cooperative, needs to be reminded to keep nasal canula on I) Administered scheduled medications as ordered, monitored for safety R) Mediation compliant, sleeping quietly with HOB up 30 degrees P) Continue plan of care.
[2019-09-14 09:31] VITALS: BP 120/68
--- NOTE | 2019-09-14 11:08 | NUR ---
PATIENT SPEAKING WITH SLEEPING CAR PORTER AT THIS TIME. PT IS VERY HARD OF HEARING. PT IS ALERT AND CONFUSED. ORIENTED TO PERSON. PT IS ON O2 AT 2 LPM VIA N/C. PT IS VERY FRIENDLY WITH STAFF AND PEERS. PT IS COMPLIANT WITH MEDS, VITALS AND ASSESSMENTS. PT REQUIRES ASSISTANCE WITH ADL'S. CAN MAKE SOME NEEDS KNOWN. PT HAS UNSTEADY GAIT AMBULATE WITH ASSISTANCE. CHAIR ALARM IN PLACE AND ACTIVE. WILL CONT PLAN OF CARE.
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
[2019-09-14 19:30] VITALS: BP 108/64
--- NOTE | 2019-09-15 03:16 | NUR ---
B) Patient is alert and oriented to person and place, I) administered scheduled medications as ordered, encouraged use of oxygen, monitored for safety R) Medication compliant, sleeping soundly in his bed, P) Continue planof care.
[2019-09-15 08:29] VITALS: BP 110/59
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
--- NOTE | 2019-09-15 15:48 | NUR ---
The patient is awake and he is oriented to himself. He is pleasant he has not shown any aggression today. He is [place]. He continues to use oxygen at 2L/M per NC. His called and asked about his behavior and well being. The patient is able to stand and assist with transfers. Provide prescribed meds. The patient is compliant with medications. Continue POC.
[2019-09-15 20:00] VITALS: BP 98/58
--- NOTE | 2019-09-15 23:57 | NUR ---
B) Patient is alert and orient ed to person, calm and cooperative, follows instructions, I) Administered scheduled medications as ordered, monitored oxygen use and encouraged his to keep his nasal canula on, R) mediation compliant, pleasant and friendly toward staff, P) Continue plan of care.
[2019-09-16 08:00] VITALS: BP 110/56
--- NOTE | 2019-09-16 15:30 | NUR ---
PT. HAS BEEN QUIET, CALM, VERY POOR HEARING, NO BEHAVIORAL ISSUES NOTED. COMPLIANT WITH MEDS. CONT POC DIRECTED.
--- NOTE | 2019-09-16 20:10 | NUR ---
RECEIVED IN HALLWAY BEING TRANSFERED TO HIS BEDROOM BY [facility]. CALM AND COOPERATIVE WITH CARE AND ASSESSMENT. ENCOURAGE TO EXPRESS NEEDS. REDIRECT AND REORIENT NEEDED. RESTING IN BED WITH EYES CLOSED AT THIS TIME. CONTINUE PLAN OF CARE
[2019-09-16 20:44] VITALS: BP 104/56
[2019-09-17 09:36] VITALS: BP 100/54
--- NOTE | 2019-09-17 15:13 | PN ---
PATIENT:ZIA FITZGERALD MEDICAL RECORD: [id number] LOCATION:[facility] ADMISSION DATE: 09/06/19 PROGRESS NOTE DATE OF SERVICE: 09/15/2019 SUBJECTIVE: The patient's case was discussed with staff. He has no new complaint. OBJECTIVE: The patient is in good behavioral control with poor insight about his condition. ASSESSMENT: Dementia. PLAN: Current medicines have been reviewed. I anticipate he can be transitioned out of the hospital soon. I am waiting on the guidance from adult protective services. TRANSINT:[id number] Voice Confirmation ID: [id number] DOCUMENT ID: [id number] GRACY REIS MD at 1513 CC: [id number] DICTATION DATE: 09/15/19 1255 SURFACER OPERATOR: 09/15/19 1429 ADM IN [id number] [place] [address]
--- NOTE | 2019-09-17 15:13 | PN ---
PATIENT:ZIA FITZGERALD MEDICAL RECORD: [id number] LOCATION:[facility] ADMISSION DATE: 09/06/19 PROGRESS NOTE DATE OF SERVICE: 09/16/2019 SUBJECTIVE: The patient's case was discussed with staff. He has no new complaint. OBJECTIVE: The patient is in good behavioral control. He does need 67-gcct-i-day supervision and I am waiting for adult protective services to give me guidance. TRANSINT:[id number] Voice Confirmation ID: [id number] DOCUMENT ID: [id number] GRACY REIS MD at 1513 CC: [id number] DICTATION DATE: 09/16/19 1435 ART GALLERY DIRECTOR: 09/16/19 1550 ADM IN [address] [address]
--- NOTE | 2019-09-17 15:23 | NUR ---
CALM, COOPERATIVE, CONFUSED, VERY [place], COMPLIANT WITH MEDS, NO ADVERSE BEHAVIORS, CONT POC DIRECTED.
[2019-09-17 23:37] VITALS: BP 101/53
--- NOTE | 2019-09-18 00:39 | NUR ---
RECEIVED IN PATIENT ROOM. RESTING IN BED WITH EYES OPEN. CALM AND COOPERATIVE WITH CARE AND ASSESSMENT. CONFUSED. REDIRECT AND REORIENT NEEDED. RESTING IN BED WITH EYES CLOSED AT THIS TIME. CONTINUE PLAN OF CARE.
[2019-09-18 09:25] VITALS: BP 105/59
--- NOTE | 2019-09-18 13:00 | NUR ---
PATIENT IS CALM, COOPERATIVE, VERY [place], STILL ON O2 @2L/NC. NO BEHAVIORAL ISSUES NOTED. COMPLIANT WITH MEDICATIONS. MONITOR FOR SAFETY AND CONTINUE POC.
--- NOTE | 2019-09-18 15:04 | PN ---
PATIENT:ZIA FITZGERALD MEDICAL RECORD: [id number] LOCATION:[facility] ADMISSION DATE: 09/06/19 PROGRESS NOTE DATE OF SERVICE: 09/17/2019 SUBJECTIVE: The patient's case was discussed with staff. He has no new complaint. OBJECTIVE: The patient is gaining weight. He is sleeping and eating better. ASSESSMENT: Dementia. PLAN: The patient can be transitioned out of the hospital as soon as arrangements are made. Again, as documented, we are waiting on adult protective services to tell us if they are going to take custody of him. TRANSINT:[id number] Voice Confirmation ID: [id number] DOCUMENT ID: [id number] GRACY REIS MD at 1504 CC: [id number] DICTATION DATE: 09/17/19 1542 FLOOR MANAGER: 09/17/19 1849 ADM IN [facility] [address] [place] [address]
[2019-09-18 21:01] VITALS: BP 120/61
--- NOTE | 2019-09-18 21:20 | NUR ---
RECEIVED IN DAYROOM. SITTING IN A RECLINING CHAIR. CALM AND COOPERATIVE WITH CARE AND ASSESSMENT. ENCOURAGE TO EXPRESS NEEDS. RESTINGIN BED WITH EYES CLOSED. CONTINUE PLAN OF CARE
[2019-09-19 09:00] VITALS: BP 98/59
--- NOTE | 2019-09-19 12:33 | PN ---
PATIENT:ZIA FITZGERALD MEDICAL RECORD: [id number] LOCATION:[facility]ANELL Winslow ADMISSION DATE: 09/06/19 PROGRESS NOTE DATE OF SERVICE: 09/18/2019 SUBJECTIVE: The patient's case was discussed with staff. He has no new complaint. OBJECTIVE: The patient is improving. He is gaining weight. He is becoming stronger. ASSESSMENT: Dementia. PLAN: The patient is at or near the point at which it is reasonable to transition him out of the hospital. At this point, I am waiting on adult protective services to give me guidance as to whether or not he needs to be placed in a chcf under state and in state custody or return to his home with his and son. TRANSINT:[id number] Voice Confirmation ID: [id number] DOCUMENT ID: [id number] GRACY REIS MD at 1233 CC: [id number] DICTATION DATE: 09/18/19 1600 PRESS TOOL MAKER: 09/18/19 1938 ADM IN [facility] [address] [place] [address]
--- NOTE | 2019-09-19 13:33 | NUR ---
The patient is awake and alert, he is pleasant. He has poor insight into his situation. He is [place]. He is calm. He continues to need oxygen at 2L/M per NC. Provide prescribed meds. The patient is compliant with meds. Continue POC.
[2019-09-19 21:55] VITALS: BP 107/62
[2019-09-20 08:00] VITALS: BP 105/57
--- NOTE | 2019-09-20 12:09 | NUR ---
RIGHT LOWER INNER LEG HAS A WOUND MEASURING 1CM X 3CM. IT IS DRY AND PEELING. REDNESS IS NOTED. PT SAYS IT IS DUE TO HITTING HIS LEG ON THE WHEELCHAIR. RECOMMENDED COVERING WITH A MEPILEX BORDER FOR CUSHION AND PROTECTION.
--- NOTE | 2019-09-20 14:25 | NUR ---
Nutrition Follow-up: Diet: Regular + Ensure TID PO intake: ~54% average x last 9 meals Last BM: 09/20/19. WT: 131# (09/16/19); Admit wt: 129# (09/06/19) Significant meds: megace (started 09/17/19). No new labs. Noted pt with cellulitis per MD notes. Continue current nutrition regimen and megace as medically feasible. RD following.
--- NOTE | 2019-09-20 15:32 | PN ---
PATIENT:ZIA FITZGERALD MEDICAL RECORD: [id number] LOCATION:[facility]ANELL Winslow ADMISSION DATE: 09/06/19 PROGRESS NOTE DATE OF SERVICE: 09/19/2019 SUBJECTIVE: The patient's case was discussed with staff. He has no new complaint. OBJECTIVE: The patient is in good behavioral control. He has poor insight about his condition. ASSESSMENT: Dementia. PLAN: Current medicines have been reviewed and will be maintained. Adult Protective Services is going to give us guidance on his placement. The Adult Protective Services drilling field operator has interviewed the patient. I am optimistic that we will get a ruling on his case very soon. TRANSINT:[id number] Voice Confirmation ID: [id number] DOCUMENT ID: [id number] GRACY REIS MD at 1532 CC: [id number] DICTATION DATE: 09/19/19 1245 TIRE BUILDER: 09/19/19 1332 ADM IN [id number] [place] [address]
[2019-09-20] MEDS ORDERED: KEFLEX500 MG PO (16:33)
[2019-09-20] MEDS ORDERED: DONEPEZIL HCL5 MG PO (16:33)
[2019-09-20] MEDS ORDERED: SINGULAIR10 MG PO (16:34)
[2019-09-20] MEDS ORDERED: PEPCID PO (16:34)
[2019-09-20] MEDS ORDERED: MEGACE40 MG PO (16:34)
[2019-09-20] MEDS ORDERED: DESERYL PO (16:34)
--- NOTE | 2019-09-20 18:05 | NUR ---
PATIENT CALM AND COOPERATIVE WITH CARE AND ASSESSMENT. COMPLIANT WITH MEDICATIONS. NOBEHAVIORAL ISSUES NOTED, MONITOR FOR SAFETY AND CONTINUE POC.
[2019-09-20 21:12] VITALS: BP 102/57
--- NOTE | 2019-09-20 21:25 | NUR ---
B.) PT IS ALERT AND ORIENTED TO SELF ONLY. HE IS ABLE TO MAKE HIS NEEDS KNOWN. HIS IS VERY [place] BUT PLEASANT WITH STAFF. HE USES O2 VIA NC @2L. HE HAS A MEPILEX TO HIS RIGHT [place]TA FOR CUSHION AND PROTECTION. I.) PROVIDED PM MEDICATIONS AND REDIRECT NEEDED. R.) COMPLIANT WITH ALL MEDICATIONS AND EASY TO REDIRECT. P.) WILL CONTINUE TO MONITOR.
[2019-09-21 08:30] VITALS: BP 124/57
--- NOTE | 2019-09-21 09:00 | NUR ---
PATIENT IS ALERT TO SELF ONLY WITH CONFUSION NOTED. PT ON O2 AT 2 LPM VIA N/C. PT TOLERATES WELL. PT IS ABLE TO MAKE SOME NEEDS KNOWN. QUIET AND FRIENDLY WHEN STAFF WHEN ENGAGED. PT ASSIST WITH TRANSFERS. CHAIR ALARM IN PLACE. COMPLIANT WITH MEDS, ASSESSMENT AND VITALS. DENIES ANY PAIN. WILL CONT PLAN OF CARE.
--- NOTE | 2019-09-21 13:49 | PN ---
PATIENT:ZIA FITZGERALD MEDICAL RECORD: [id number] LOCATION:SHANELL Winslow ADMISSION DATE: 09/06/19 PROGRESS NOTE DATE OF SERVICE: 09/21/2019 SUBJECTIVE: The patient's case was discussed with staff. He has no new complaint. OBJECTIVE: The patient is in good behavioral control. He has limited insight about his situation. ASSESSMENT: Dementia. PLAN: Current medicines have been reviewed and will be maintained. Long-term prognosis is guarded. I anticipate he can be transitioned out of the hospital. Adult protective services would like for him to go to a rehabilitation facility to gain more time for their investigation. I think that is reasonable and appropriate. We will attempt to discharge him as soon as it is reasonably practical to do so. TRANSINT:[id number] Voice Confirmation ID: [id number] DOCUMENT ID: [id number] GRACY REIS MD at 1349 CC: [id number] DICTATION DATE: 09/20/19 1631 PRE K TEACHER: 09/21/19 0308 ADM IN [facility] [address] [place] [id number]
[2019-09-21 15:59] VITALS: BP 124/57
--- NOTE | 2019-09-21 20:18 | NUR ---
PATIENT IS ALERT, NOT TOTALLY UNDERSTANDING OF SITUATION. PLEASANT AND SMILES, COMPLIANT WITH MEDS, EXTREMELY LOWER [place], OXYGEN IN USE AT 2 LITERS, NEEDS ASSIST WITH ADL'S. WILL FOLLOW POC
[2019-09-22 02:22] VITALS: BP 101/47
--- NOTE | 2019-09-22 10:12 | NUR ---
PATIENT SITTING IN DAY AREA. PT IS [place] WITH STAFF AND SMILES. PT IS ALERT AND ORIENTED TO SELF ONLY. PT HAS LIMITED INSIGHT TO SITUATION. PT ASSISTS WITH TRANSFERS. PT COMPLIANT WITH MEDS, VITALS AND ASSESSMENTS. PT IS ON O2 AT 2 LPM VIA N/C. PT IS QUIET. W/C ALARM IN PLACE AND ACTIVE. WILL CONT PLAN OF CARE.
--- NOTE | 2019-09-22 11:50 | PN ---
PATIENT:ZIA FITZGERALD MEDICAL RECORD: [id number] LOCATION:[facility]ANELL Winslow ADMISSION DATE: 09/06/19 PROGRESS NOTE DATE OF SERVICE: 09/21/2019 SUBJECTIVE: The patient's case was discussed with staff. He has no new complaint. OBJECTIVE: The patient is in good behavioral control. He is breathing better. He is eating better. He is gaining weight and is much more interactive. ASSESSMENT: Dementia. PLAN: Current medicines have been reviewed and will be maintained. Long-term prognosis is guarded. TRANSINT:[id number] Voice Confirmation ID: [id number] DOCUMENT ID: [id number] GRACY REIS MD at 1150 CC: [id number] DICTATION DATE: 09/21/19 1606 WEB OPERATIONS SPECIALIST: 09/21/19 2147 ADM IN [facility] [address] [place] [address]
--- NOTE | 2019-09-22 12:50 | NUR ---
SPOKE WITH PT SON ABOUT VISITATION AND IF PT WAS DISCHARGING THIS WEEKEND. PASSCODE WAS GIVEN. SON STATED HE WOULD ATTEMPT TO COME VISIT THIS SHIFT. HE WANTED TO KNOW WHERE HE WAS DISCHARGING TOO FOR REHAB. NURSE EXPLAINED THAT THE SHIPPING/RECEIVING CLERK WOULD GO OVER THE DETAILS CLOSER TO DISCHARGE. THIS NURSE EXPLAINED SHE DID NOT HAVE ALL THE DETAILS AT THAT MOMENT. FAMILY VERBALIZIED UNDERSTANDING.
--- NOTE | 2019-09-22 18:36 | NUR ---
PATIENT FAMILY WANTED TO CALL AND CHECK ON HIS PROGRESS FOR THE DAY. FAMILY WANTED TO SPEAK WITH HIM BUT THEY KNOW HE COULDN'T HEAR TO ANSWER THE PHONE SO COULD WE GIVE HIM THE PHONE. FAMILY VERBALIZIED UNDERSTANDING OF PATIENT DAY.
--- NOTE | 2019-09-22 21:01 | NUR ---
PATIENT IS SLIGHTLY CONFUSED, HE IS ORIENTED TO SELF, PLACE AND SITUATION FORGETS TIME AT TIMES. PATIENT IS COMPLIANT WITH MEDS, ABLE TO MAKE NEEDS KNOWN, WILL FOLLOW POC
[2019-09-23 01:44] VITALS: BP 106/53
--- NOTE | 2019-09-23 10:00 | NUR ---
PATIENT SITTING WATCHING T.V. NO ACUTE DISTRESS NOTED. PT IS ALERT, CONFUSED ORIENTED TO SELF ONLY. PT IS O2 AT 2 LPM VIA N/C. PT IS VERY [place] BUT SMILES AT STAFF WHEN DOSENT UNDERSTAND. ASSSITANCE WITH ADLS WHEN NEEDED. PT IS COMPLIANT WITH ADLS, VITALS AND ASSESSMENTS. CHAIR ALARM IN PLACE AND ACTIVE. WILL CONT PLAN OF CARE.
[2019-09-23 11:27] VITALS: BP 104/46
--- NOTE | 2019-09-23 12:12 | NUR ---
SW SPOKE TO PT'S , ELLA, TO DISCUSS DISCHARGE PLANS FOR [facility] ON TUESDAY. SW PROVIDED INFORMATION AND CONTACT FOR [facility]. ELLA VOICED UNDERSTANDING OF DISCUSSION.
--- NOTE | 2019-09-23 13:20 | PN ---
PATIENT:ZIA FITZGERALD MEDICAL RECORD: [id number] LOCATION:SHANELL Winslow ADMISSION DATE: 09/06/19 PROGRESS NOTE DATE OF SERVICE: 09/22/2019 SUBJECTIVE: The patient's case was discussed with staff. He has no new complaint. OBJECTIVE: The patient is in good behavioral control. He has limited insight. He is partially oriented. ASSESSMENT: Dementia. PLAN: The patient will be transitioned out of the hospital on Tuesday to the [facility]. His long-term prognosis is guarded. TRANSINT:[id number] Voice Confirmation ID: [id number] DOCUMENT ID: [id number] GRACY REIS MD at 1320 CC: [id number] DICTATION DATE: 09/22/19 1209 SKIP PITMAN: 09/22/19 1415 ADM IN [facility] [address] [place] [address]
[2019-09-23 20:00] VITALS: BP 108/54
--- NOTE | 2019-09-23 21:56 | NUR ---
RECEIVED IN HALLWAY OUTSIDE OF NURSES STATION. CALM AND COOPERATIVE WITH CARE AND ASSESSMENT. CONFUSED. REDIRECT AND REORIENT NEEDED. RESTING IN BED WITH EYES CLOSED AT THIS TIME. CONTINUE PLAN OF CARE.
--- NOTE | 2019-09-24 13:44 | NUR ---
PATIENT IS ALERT AND ORIENTED TO SELF ONLY, VERY [place]. HE IS COMPLIANT WITH MEDICATIONS. REDIRECT NEEDED. MONITOR FOR SAFETY AND CONTINUE PLAN OF CARE.
--- NOTE | 2019-09-24 15:13 | PN ---
PATIENT:ZIA FITZGERALD MEDICAL RECORD: [id number] LOCATION:SHANELL Winslow ADMISSION DATE: 09/06/19 PROGRESS NOTE DATE OF SERVICE: 09/23/2019 SUBJECTIVE: The patient's case was discussed with staff. He has no new complaint. OBJECTIVE: The patient is in good behavioral control. He has limited insight. ASSESSMENT: Dementia. PLAN: The patient will be transitioned out of the hospital tomorrow. He is going to go to the [facility] for rehabilitation. He continues to gain weight and I am encouraged about his long-term prognosis. TRANSINT:[id number] Voice Confirmation ID: [id number] DOCUMENT ID: [id number] GRACY REIS MD at 1513 CC: [id number] DICTATION DATE: 09/23/19 1347 STRAIGHTENER HAND: 09/23/19 2314 ADM IN [facility] [address] [place] [address]
--- NOTE | 2019-09-24 15:56 | NUR ---
Nutrition Follow-up: Diet: Regular + Ensure TID PO intake: ~79% average x last 9 meals Last BM: 09/24/19. WT: 131# (09/23/19); Admit wt: 129# (09/06/19) Significant meds: Megace. No new labs. Continue current nutrition regimen. RD following.
[2019-09-24 20:00] VITALS: BP 113/60
--- NOTE | 2019-09-24 22:23 | NUR ---
RECEIVED IN PATIENT ROOM. RESTING IN BED WITH EYES OPEN. BATH GIVEN. CALM AND COOPERATIVE WITH CARE AND ASSESSMENT. CONFUSED. REDIRECT AND REORIENT NEEDED. RESTING IN BED WITH EYES CLOSED AT THIS TIME. CONTINUE PLAN OF CARE.
[2019-09-25 08:00] VITALS: BP 98/50
--- NOTE | 2019-09-25 11:14 | NUR ---
PATIENT CALM, COOPERATIVE, QUITE PLEASANT, VERY [place], MEDICATION COMPLIANT, TAKES MEDS WHOLE, CONT ON O2 AT 2 LPM VIA N/C, NO ADVERSE BEHAVIORS NOTED. CONT. POC DIRECTED.
--- NOTE | 2019-09-25 13:51 | PN ---
PATIENT:ZIA FITZGERALD MEDICAL RECORD: [id number] LOCATION:[facility]ANELL Winslow ADMISSION DATE: 09/06/19 PROGRESS NOTE DATE OF SERVICE: 09/24/2019 SUBJECTIVE: The patient's case was discussed with staff. He has no new complaint. OBJECTIVE: The patient is in good behavioral control, but confused. ASSESSMENT: Dementia. PLAN: The patient's family has not gone to the snf to sign the necessary papers. He is ready for discharge, but I cannot accept him until the family does so. His discharge; therefore, is put off for today. TRANSINT:[id number] Voice Confirmation ID: [id number] DOCUMENT ID: [id number] GRACY REIS MD at 1351 CC: [id number] DICTATION DATE: 09/24/19 164 GOLF BALL WINDER: 09/25/19 0057 ADM IN [facility] [address] [place] [id number]
[2019-09-25 20:35] VITALS: BP 95/59
--- NOTE | 2019-09-26 00:01 | NUR ---
RECEIVED IN DAYROOM. SITTING QUIETLY AND WATCHING TV. CALM AND COOPERATIVE WITH CARE AND ASSESSMENT. CONFUSED. PLEASANT. REDIRECT AND REORIENT NEEDED. RESTING IN BED WITH EYES OPEN AT THIS TIME. CONTINUE PLAN OF CARE.
[2019-09-26 09:11] VITALS: BP 98/48
--- NOTE | 2019-09-26 10:12 | PN ---
PATIENT:ZIA FITZGERALD MEDICAL RECORD: [id number] LOCATION:SHANELL Winslow ADMISSION DATE: 09/06/19 PROGRESS NOTE DATE OF SERVICE: 09/25/2019 SUBJECTIVE: The patient's case was discussed with staff. He has no new complaint. OBJECTIVE: The patient is in good behavioral control and it appears that arrangements have finally been made with the [facility]p. ASSESSMENT: Dementia. PLAN: The patient will be transitioned out of the hospital in the morning. Followup will be with his primary care [facility] physician. TRANSINT:[id number] Voice Confirmation ID: [id number] DOCUMENT ID: [id number] GRACY REIS MD at 1012 CC: [id number] DICTATION DATE: 09/25/19 1544 APIARIST: 09/25/19 2303 ADM IN [facility] [address] [place] [address]
--- NOTE | 2019-09-26 15:56 | NUR ---
PATIENT CALM, COOPERATIVE, CONFUSED, PLEASANT. COMPLIANT WITH MEDS. NO ADVERSE BEHAVIORS NOTED. CONT POC DIRECTED.
--- NOTE | 2019-09-26 22:46 | NUR ---
REC'D PATIENT SITTING IN THE DAYROOM RECEIVING UPDRAFT TREATMENT. ORIENTED TO SELF AND PLACE. RELATES HE IS HERE BECAUSE "I HAD A COLD." VERY [place] AND HAS DIFFICULTY COMMUNICATING RELATING HIS IS SUPPOSE TO BRING HIM A HEARING AID. ADMINISTER MEDS AND MONITOR COMPLIANCE. REORIENT NEEDED. MED COMPLIANT. WHEN REORIENTED TO TIME PT RELATED "OH YEAH MY BIRTHDAY." PT'S BIRTHDAY IS [birth year]. PLEASANT HOWEVER COMFUSED. CONTINUE POC AND PROVIDE SAFE ENVIRONMENT.
[2019-09-26 22:50] VITALS: BP 88/53
--- NOTE | 2019-09-27 09:05 | NUR ---
PT SITTING IN CHAIR AWAITING BREAKFAST. RESP EVEN AND NONLABORED. NO ACUTE DISTRESS NOTED AT THIS TIME. PT IS CONFUSED, ALERT AND ORIENTED TO SELF. PT IS VERY [place]. O2 ON AT 2 LPM VIA N/C. PT IS COMPLIANT WITH MEDS, VITALS AND ASSESSMENTS. REDIRECT AND REORIENT NEEDED. PT CAN AMBULATE WITH ASSISTANCE. CHAIR ALARM IN PLACE AND ACTIVE. WILL CONT PLAN OF CARE.
[2019-09-27 09:26] VITALS: BP 112/63
--- NOTE | 2019-09-27 13:44 | NUR ---
Nutrition Follow-up: Diet: Regular + Ensure TID PO intake: ~70% average x last 9 meals Last BM: 09/26/19. WT: 142# (09/27/19); Admit wt: 129.2# (09/06/19) Meds noted: megace. No new labs. Continue current nutrition regimen. RD following.
--- NOTE | 2019-09-27 15:30 | NUR ---
PATIENT DISCHARGED TO [facility] WITH EXTRACTIONS TECHNOLOGIST. PAPERWORK SENT AND FAXED TO FACILITY. PT STABLE AT TIME OF DISCHARGE. PT ASSISTED WITH TRANSFER. PT BELONGINGS SENT WITH PT. PT VERY [place]. PT TOLERATED D/C WELL.
--- NOTE | 2019-09-28 15:05 | PN ---
PATIENT:ZIA FITZGERALD MEDICAL RECORD: [id number] LOCATION:SHANELL Winslow ADMISSION DATE: 09/06/19 PROGRESS NOTE DATE OF SERVICE: 09/27/2019 SUBJECTIVE: The patient's case was discussed with staff. He has no new complaint. OBJECTIVE: The patient is in good behavioral control. He is tolerating his medicines well. His family has finally gone to the intermediate and signed the appropriate papers. ASSESSMENT: Dementia. PLAN: The patient will be transitioned to the intermediate today as his family has signed the appropriate paperwork for his discharge. TRANSINT:[id number] Voice Confirmation ID: [id number] DOCUMENT ID: [id number] GRACY REIS MD at 1505 CC: [id number] DICTATION DATE: 09/27/191831 SERVICER COIN MACHINES: 09/27/192018 DIS IN 09/27/19 [id number] [place] [address]
--- NOTE | 2019-10-06 13:05 | DS ---
PATIENT:ZIA FITZGERALD :38 MEDICAL RECORD: [id number] DISCHARGE SUMMARY ADMISSION DATE: 09/06/19 DISCHARGE DATE: 09/27/19 IDENTIFYING DATA: The patient is 78 years old and he was admitted to the hospital on a voluntary basis because of confusion. The patient was initially admitted to the medical floor because of exacerbation of underlying chronic obstructive pulmonary disease. There, he became agitated, disruptive and essentially unmanageable. He subsequently had to be transferred to the behavioral unit and continued to be very disruptive. HOSPITAL COURSE: The patient was admitted to the hospital and fully evaluated from both a medical, psychological, and social standpoint. He was treated with both mood stabilizing and memory enhancing medications and did show significant improvement. He subsequently was referred to an outpatient setting where he could have all of his needs, medication and receive 24-hour a day care. Adult protective services was involved in the case and had done an investigation. DISCHARGE DIAGNOSES: AXIS I: Major vascular neurocognitive disorder. AXIS II: None. AXIS III: Emphysema, atrial fibrillation status post stroke and gastroesophageal reflux disease. AXIS IV: Moderate. AXIS V: Global assessment of functioning is 30. PLAN: At the time of discharge, the patient was in good behavioral control with limited insight about his situation. He showed no evidence of acute or direct dangerousness to himself or others. His long-term prognosis is guarded. Followup is to be with his primary care physician. TRANSINT:[id number] Voice Confirmation ID: [id number] DOCUMENT ID: [id number] GRACY REIS MD at 1305 CC: [id number] DICTATION DATE: 10/05/19 1537 FAMILY PRACTICE DOCTOR: 10/06/19 0851 DIS IN 09/27/19 [facility] [address] [place] [id number]
== END 2019-09-27 15:45 | DRG 56 ==
LOC: D.PSYCH 12:06
PROVIDERS: ADMIT Psychiatry & Neurology Psychiatry; ATTEND Psychiatry & Neurology Psychiatry
DX: I69.319 Unspecified symptoms and signs involving cognitive functions following cerebral infarction (principal); J96.01 Acute respiratory failure with hypoxia; F01.51 Vascular dementia, unspecified severity, with behavioral disturbance; L03.115 Cellulitis of right lower limb; I48.91 Unspecified atrial fibrillation; K21.9 Gastro-esophageal reflux disease without esophagitis; R26.9 Unspecified abnormalities of gait and mobility; J43.9 Emphysema, unspecified